=== PATIENT | male | born 1970 | race Caucasian/White ===

== ENCOUNTER → 2017-10-17 17:22 | Outpatient (CLI) | payer BC, SELFPAY ==
--- NOTE | 2017-10-17 18:01 | XR_ITS ---
XR wrist RT min 3V HISTORY: Wrist pain ORDERING PHYSICIAN: Alejandro Daily MD PATIENT AGE: 47 years COMPARISON: None FINDINGS: There is an old ununited fracture involving the junction of the mid and distal third of the scaphoid. There is sclerosis of the fracture line. The distal and proximal fracture fragments however do not appear significantly sclerotic. The findings are not convincing for avascular necrosis. No acute fracture or dislocation evident. 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
--- NOTE | 2017-10-17 18:02 | XR_ITS ---
XR forearm RT 2V HISTORY: Right forearm pain ORDERING PHYSICIAN: Alejandro Daily MD PATIENT AGE: 47 years COMPARISON: None FINDINGS: No obvious fracture, dislocation, lytic change or blastic change. Normal mineralization. Unremarkable soft tissues IMPRESSION: Negative forearm
== END ==
PROVIDERS: PCP Internal Medicine Adolescent Medicine; Visit Provider Internal Medicine Adolescent Medicine
DX: R00.1 Bradycardia, unspecified (principal); M79.601 Pain in right arm; M25.531 Pain in right wrist
CPT/HCPCS: 73090; 73110; 93225; 93226

== ENCOUNTER → 2017-11-28 08:30 | Outpatient (CLI) | payer BC, SELFPAY ==
--- NOTE | 2017-11-28 08:32 | CA_ITS ---
PROCEDURE: 2-D M-mode and color Doppler study INDICATIONS FOR THE TEST: Chest pain COPD Heart Murmur Tobacco Smoking Palpitations Fatigue+ Syncope Edema Hypertension Diabetes Mellitus Rheumatic Fever SOB ROJAS Obesity Hyperlipidemia Family History HD+ Additional History BRADYCARDIA PATIENT INFORMATION HEIGHT: 75 WEIGHT:216 GENDER: Male B/P:126/77 2-D/M-MODE INTERPRETATION: 2-D MEASUREMENTS OBSERVED VALUES IN CMS Right Ventricular Dimension (RVDd) 2.2 Interventricular Septum (Thickness)(IVsd) 1.3 Left Ventricular Internal Dimensions(LVIDd) 5.0 Left Ventricular Posterior Wall (Thickness)(LVPWd) 1.2 Aortic Root 3.0 Aortic Cusp Separation 2.0 Left Atrial Dimensions (LAD) 3.4 2D 1. Left atrium is normal size, left ventricle is normal size, left ventricle wall thickness is upper limit of the normal, preserved left ventricular systolic function, visually estimated ejection fraction 55% with no obvious regional wall motion abnormality. 2. The right atrium and right ventricle are normal size and contractility. 3. The aortic, mitral and tricuspid valve are structurally normal. 4. The pulmonic valve is poorly visualized. 5. There is trivial pericardial effusion noted. DOPPLER INTERROGATION: Doppler interrogation of the aortic, mitral and tricuspid valvular presence of mild mitral and tricuspid regurgitation, tricuspid and enteric velocity insufficient for calculation of the right ventricular systolic pressure, diastolic parameters are inconclusive. CONCLUSION: 1. Normal left ventricular size, preserved left ventricular systolic function, visually estimated ejection fraction 55% with no obvious regional wall motion abnormality, diastolic parameters are inconclusive. 2. Mild mitral and tricuspid addition 3. Trivial pericardial effusion noted.
--- NOTE | 2017-11-28 08:32 | CT_ITS ---
CT heart w calcium score ITS.REASON: early family hx of ischemic heart disease ORDERING PHYSICIAN HISTORY 47-year-old male. Nonsmoker. Early family history of ischemic heart disease. Bradycardia. COMPARISON: None Technique: All CT scans at this facility use one or more dose reduction techniques, viz.: automated exposure control; ma/kV adjustment per patient size (including targeted exams where dose is matched to indication; i.e. head) or iterative reconstruction technique. FINDINGS: Coronary calcium score is 0. No identifiable calcified atherosclerotic plaque Very low cardiovascular disease risk. Limited images the chest for this study show the heart to be normal size no pericardial effusion minimal wispy density anterior mediastinum nonspecific. A may reflect some residual thymus tissue. No ebony or mass like appearance. IMPRESSION: 1.Coronary calcium score is 0. No identifiable calcified atherosclerotic plaque Very low cardiovascular disease risk.
== END ==
PROVIDERS: Family Provider Internal Medicine Adolescent Medicine; PCP Internal Medicine Adolescent Medicine; Visit Provider Internal Medicine
DX: I97.89 Other postprocedural complications and disorders of the circulatory system, not elsewhere classified (principal); Z82.49 Family history of ischemic heart disease and other diseases of the circulatory system; R53.83 Other fatigue
CPT/HCPCS: 75571; 93306

== ENCOUNTER → 2018-03-28 16:01 | Outpatient (POV) | payer BC, SELFPAY ==
[2018-03-28 17:45] LABS: Basophils % 0.4 % (0.1-2.0); Eosinophils # 0.1 K/mm3 (0.0-0.4); Eosinophils % 1.7 % (0.1-12.0); Hematocrit 41.1 % (42.0-52.0); Hemoglobin 13.5 g/dL (14.1-18.0); Lymphocytes # 2.2 K/mm3 (0.7-4.5); Lymphocytes % 30.1 K/mm3 (10-50); Mean Corpuscular HGB Conc 32.9 g/dL (31.8-35.4); Mean Corpuscular Hemoglobin 28.9 pg (27.0-31.2); Mean Platelet Volume 7.3 fl (7.4-10.4); Monocytes # 0.4 K/mm3 (0.1-1.0); Monocytes % 6.2 % (1.7-9.3); Neutrophils # 4.4 K/mm3 (1.8-7.8); Neutrophils % 61.7 % (37.0-80.0); Platelet Count 275 K/mm3 (142-424); Red Blood Count 4.67 M/mm3 (4.60-6.20); Red Cell Distribution Width 14.3 % (11.5-17.5); White Blood Count 7.2 K/mm3 (4.8-10.8)
[2018-03-28 19:33] LABS: Alanine Aminotransferase 40 U/L (12-78); Albumin/Globulin Ratio 1.3 (1.1-1.8); Alkaline Phosphatase 101 U/L (46-116); Anion Gap 13.2 mEq/L (5-15); Aspartate Amino Transferase 16 U/L (15-37); Bilirubin,Total 0.4 mg/dL (0.2-1.0); Blood Urea Nitrogen 21 mg/dL (7-18); Carbon Dioxide 23 mmol/L (21.0-32.0); Chloride 107 mmol/L (98-107); Cholesterol 193 mg/dL (140-200); Creatinine,Serum 0.87 mg/dL (0.70-1.30); Estimated Glomerular Filt Rate 94 ml/min (>60); GFR (African American) 114 ML/MIN (>60); Globulin 3.1 gm/dl (1.3-3.2); Glucose 79 mg/dL (74-106); HDL Cholesterol 64 mg/dL (27-67); LDL Cholesterol 110 mg/dL (0-130); Potassium 4.2 mmoL/L (3.5-5.1); Sodium 139 mmol/L (136-145); Total Protein,Serum 7.1 gm/dL (6.4-8.2); Triglycerides 94 mg/dL (30-200); VLDL Cholesterol 19 mg/dL (0-40)
== END ==
PROVIDERS: Family Provider Internal Medicine Adolescent Medicine; PCP Internal Medicine Adolescent Medicine; Visit Provider Dermatology
DX: L70.0 Acne vulgaris (principal); Z79.899 Other long term (current) drug therapy
CPT/HCPCS: 36415; 80053; 80061; 85025

== ENCOUNTER → 2018-06-04 15:57 | Outpatient (POV) | payer BC, SELFPAY | PROVIDERS: Family Provider Internal Medicine Adolescent Medicine; PCP Internal Medicine Adolescent Medicine; Visit Provider Dermatology | DX: Z00.00 Encounter for general adult medical examination without abnormal findings (principal) ==

== ENCOUNTER → 2018-08-13 16:08 | Outpatient (POV) | payer BC, SELFPAY | PROVIDERS: Visit Provider Dermatology | DX: Z00.00 Encounter for general adult medical examination without abnormal findings (principal) ==

== ENCOUNTER → 2018-12-24 15:55 | Outpatient (POV) | payer BC, SELFPAY | PROVIDERS: Visit Provider Dermatology | DX: Z00.00 Encounter for general adult medical examination without abnormal findings (principal) ==

== ENCOUNTER → 2019-08-30 09:39 | Outpatient (CLI) | payer BC, SELFPAY ==
[2019-08-30 09:55] LABS: Basophils % 0.5 % (0.1-2.0); Eosinophils # 0.2 K/mm3 (0.0-0.4); Eosinophils % 2.9 % (0.1-12.0); Hematocrit 46.9 % (42.0-52.0); Hemoglobin 15.2 g/dL (14.1-18.0); Lymphocytes # 1.7 K/mm3 (0.7-4.5); Lymphocytes % 28.3 % (10-50); Mean Corpuscular HGB Conc 32.4 g/dL (31.8-35.4); Mean Corpuscular Volume 89.4 fl (80-94); Mean Platelet Volume 7.5 fl (7.4-10.4); Monocytes # 0.4 K/mm3 (0.1-1.0); Monocytes % 5.7 % (1.7-9.3); Neutrophils # 3.8 K/mm3 (1.8-7.8); Neutrophils % 62.5 % (37.0-80.0); Platelet Count 274 K/mm3 (142-424); Red Blood Count 5.25 M/mm3 (4.60-6.20); Red Cell Distribution Width 13.8 % (11.5-17.5); White Blood Count 6.1 K/mm3 (4.8-10.8)
[2019-08-30 10:23] LABS: Hemoglobin A1C 5.9 % (0.0-7.0)
[2019-08-30 10:59] LABS: Alanine Aminotransferase 60 U/L (12-78); Albumin/Globulin Ratio 1.3 (1.1-1.8); Alkaline Phosphatase 144 U/L (46-116); Anion Gap 17.3 mEq/L (5-15); Aspartate Amino Transferase 22 U/L (15-37); Bilirubin,Total 0.4 mg/dL (0.2-1.0); Blood Urea Nitrogen 17 mg/dL (7-18); Carbon Dioxide 23 mmol/L (21.0-32.0); Chloride 105 mmol/L (98-107); Chol/HDL Ratio 4.3 (1-3.5); Cholesterol 274 mg/dL (140-200); Creatinine,Serum 0.91 mg/dL (0.70-1.30); Estimated Glomerular Filt Rate 89 ml/min (>60); GFR (African American) 107 ML/MIN (>60); Globulin 3.2 gm/dl (1.3-3.2); Glucose 97 mg/dL (74-106); HDL Cholesterol 64 mg/dL (27-67); LDL Cholesterol 189 mg/dL (0-130); Potassium 4.3 mmoL/L (3.5-5.1); Sodium 141 mmol/L (136-145); Thyroid Stimulating Hormone 1.61 uIU/ml (0.358-3.740); Total Protein,Serum 7.2 gm/dL (6.4-8.2); Triglycerides 104 mg/dL (30-200); VLDL Cholesterol 21 mg/dL (0-40)
[2019-08-31 09:45] LABS: Vitamin B12 193 pg/mL (232-1245)
[2019-09-01 13:42] LABS: Vitamin D 25 Hydroxy 16.7 ng/mL (30.0-100.0)
[2019-09-05 06:39] LABS: Antiparietal Cell Antibody 42.6
== END ==
PROVIDERS: Visit Provider Internal Medicine Adolescent Medicine
DX: M79.2 Neuralgia and neuritis, unspecified (principal); E53.8 Deficiency of other specified B group vitamins; E55.9 Vitamin D deficiency, unspecified
CPT/HCPCS: 36415; 80053; 80061; 82607; 82652; 83036; 83516; 84443; 85025

== ENCOUNTER → 2019-09-19 16:22 | Outpatient (CLI) | payer BC, SELFPAY ==
--- NOTE | 2019-09-19 16:33 | CT_ITS ---
PROCEDURE: CT ABDOMEN PELVIS WO CON CLINICAL INDICATION: FLANK PAIN COMPARISON: ABDPELW/O CT ABD PELVIS W/O CONTRAST from 07/27/2016 TECHNIQUE: Axial images obtained with sagittal and coronal reformats. All CT scans at the facility use one or more dose reduction, viz: automated exposure control, ma/kV adjustment per patient size (including targeted exams where dose is matched to indication, i.e. head), or iterative reconstruction technique. FINDINGS: LOWER THORAX: No acute finding ABDOMEN & PELVIS: There is an approximately 3 millimeter nonobstructing stone at the cortico medullary junction of the right lower pole kidney. A 1 millimeter nonobstructing stone in the lower pole of the left kidney is noted. There is no ureteral stone. The liver, spleen, pancreas, adrenal glands, and kidneys show no acute finding. No intestinal obstruction or free air. No evidence of appendicitis or diverticulitis. No pelvic mass, abnormal fluid collection, or focal inflammatory change of the pelvis. Postsurgical changes with metallic reduction rods and bi pedicular screws are noted at L5-S1. There is grade 1 anterior listhesis L5 on S1 with bilateral pars defects. Bilateral laminectomy defects are noted. No acute bony anomalies. Incidental note is made of scrotal hydroceles right greater than left. Scrotum is incompletely imaged. Ultrasound could further evaluate if felt to be clinically indicated. IMPRESSION: Bilateral nonobstructing renal calculi. Dictated by: Derrick Mejia 09/20/2019 10:35 Electronically signed by Derrick Mejia in [facility] 09/20/2019 10:35
== END ==
PROVIDERS: PCP Internal Medicine Adolescent Medicine; Visit Provider Internal Medicine Adolescent Medicine
DX: R10.9 Unspecified abdominal pain (principal)
CPT/HCPCS: 74176

== ENCOUNTER → 2019-11-10 15:42 | Outpatient (CLI) | payer BC, SELFPAY ==
--- NOTE | 2019-11-10 15:46 | XR_ITS ---
PROCEDURE: XR SHOULDER RT MIN 2V CLINICAL INDICATION: RT ROTATOR CUFF DISORDER Shoulder pain COMPARISON: No exams were available for comparison FINDINGS: The glenohumeral joint has an unremarkable appearance. Acromioclavicular joint also has an unremarkable appearance. There is an old ununited fracture of the distal shaft of the clavicle with inferior displacement of the distal fracture fragment by approximately 13 mm. There is some ossification of the coracoclavicular ligament. IMPRESSION: 1. Ununited displaced right distal clavicular fracture. 2. Unremarkable acromioclavicular and glenohumeral joint Dictated by: Jimmy Jung MD 11/10/2019 15:59 Electronically signed by Jimmy Jung MD in [facility] 11/10/2019 15:59
== END ==
PROVIDERS: PCP Internal Medicine Adolescent Medicine; Visit Provider Internal Medicine Adolescent Medicine
DX: M67.911 Unspecified disorder of synovium and tendon, right shoulder (principal)
CPT/HCPCS: 73030

== ENCOUNTER 2019-11-18 17:30 | Outpatient (RCR) | payer BC, SELFPAY ==
--- NOTE | 2019-11-12 17:38 | HMH.PTOPEV ---
PT Outpatient Evaluation Rehab PT Outpatient Evaluation Start: 11/12/19 16:47 Freq: Status: Active Protocol: Document 11/12/19 16:47 RENOSCOTTY (Rec: 11/12/19 17:38 FELY [id number]) Electronically Signed By Domo Chapa PT 11/12/19 16:47 Outpatient Therapy Subjective History Subjective History This is the initial Physical Therapy evaluation for Dwayne Mcgrath. Pt is a 49 y/o male referred to PT for c/o R shoulder pain. Pt reports pain began insidiously ~ 1 month ago. Pt notes pain in anterir portion of R shoulder into the joint and superior portion. 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 Chief Complaint Pain Symptom Type Ache,Burning Symptoms Relieved By Rest/Positioning Symptoms Aggravated By Physical Activity Prior Functional Limitations None Current Functional Limitations Reaching,Lifting,Sleeping, Recreation Activity Level of pain today (0-10) 3 Pain scale - at its best (0-10) 2 Pain scale - at its worst (0-10) 9 Shoulder/Elbow Eval Shoulder Objective Measurements Palpation Tenderness tenderness shoulder exam standard right tenderness over the bicipital tendon right shoulder exam standard Shoulder Palpation Findings Tenderness Shoulder ROM Right Shoulder ROM Limitations Pain Shoulder Abduction Active Range of 90 Motion (degrees) Shoulder Flexion Active Range of Motion 90 (degrees) Query Text: pain with active ROM shoulder exam right standard pain with passive ROM shoulder exam right standard decreased ROM shoulder exam standard right Shoulder Special Tests Shoulder Drop Arm Test Negative Right Shoulder Cross-Over Impingement Test Negative Right Shoulder Anterior Drawer Test Negative Right Shoulder Clunk Test Negative Right Shoulder Empty Can (Supraspinatus) Test Negative Right Shoulder Grind Test Negative Right Shoulder Neer Impingement Test Positive Right Shoulder Piano Rdz Sign Positive Right Shoulder Rotatory Stress Test Negative Left Elbow Objective Measurements Outpatient Therapy Assessment Impairments Problems/Impairmments Palpation Tenderness,Impaired Range of Motion,Impaired Strength,Impaired Lifting, Impaired Dressing,Impaired
== END 2019-11-18 17:35 | disposition home or self-care (01) ==
LOC: PT 17:30
PROVIDERS: PCP Internal Medicine Adolescent Medicine; Visit Provider Internal Medicine Adolescent Medicine
DX: M67.911 Unspecified disorder of synovium and tendon, right shoulder (principal)
CPT/HCPCS: 97010; 97014; 97033; 97110; 97163; G0283

== ENCOUNTER 2019-12-15 17:00 | Emergency (ER) | payer BC, SELFPAY ==
[2019-12-15 17:09] VITALS: BP 130/93; PULSE 64; RESP 16; TEMP 36.8; O2SAT 98; BMI 28.2
--- NOTE | 2019-12-15 17:15 | XR_ITS ---
PROCEDURE: XR HAND LT MIN 3V CLINICAL INDICATION: INJURY Posttraumatic pain COMPARISON: No exams were available for comparison FINDINGS: No fracture or dislocation. No lytic or blastic change. There is normal mineralization. There is a small metallic density in the thenar eminence at 3 mm and 1 along the lateral and proximal aspect of the proximal phalanx of the 1st finger at 2 mm. Other findings:None. IMPRESSION: 1. No acute fracture. 2. Metallic foreign bodies at the thumb and thenar eminence Dictated by: Jimmy Jung MD 12/15/2019 20:04 Electronically signed by Jimmy Jung MD in [facility] 12/15/2019 20:04
[2019-12-15 17:16] VITALS: BP 130/93; PULSE 64; RESP 16; TEMP 36.8; O2SAT 98; BMI 28.2
--- NOTE | 2019-12-15 18:03 | HMH.EDUTC ---
[facility] [place] Disposition Clinical Impression: Need for Tdap vaccination Injury, crush, finger Qualifiers: Encounter type: initial encounter Qualified Code(s): S67.10XA - Crushing injury of unspecified finger(s), initial encounter Disposition: Home, Self-Care Condition on Discharge: Good Instructions: DI for Crush Injury Additional Instructions: Rest the extremity, Elevate the extremity as tolerated while you are resting. Take ibuprofen for pain. I sent in a prescription to your pharmacy. Follow up with Dr. Hoang. I put in a referral but you need to call his office and schedule an appointment. Follow up with your regular doctor. GO TO THE ER FOR ANY WORSENING SYMPTOMS Prescriptions: Mupirocin [Bactroban 2% Ointment 22gm tube] 1 applicatio TP TID 7 Days #1 tube Transmission Status: Received by [email or web address] cephALEXin [Keflex 500mg Cap] 500 mg PO Q6H 10 Days #40 cap Transmission Status: Received by [email or web address] Referrals: Alejandro Daily MD [Primary Care Provider] - Germain Hoang MD [Staff Physician] - Time of Disposition: 18:05 Medical Decision Making - Medical Records Medical records reviewed: No: I reviewed the patient's medical records. - Manav Inquiry Pt receiving controlled substance: No Vital Signs: 12/15/19 17:09 12/15/19 17:16 12/15/19 18:32 Temperature 98.3 F 98.3 F 98.3 F Temperature Source Oral Oral Oral Pulse Rate 64 Pulse Rate [Left Radial] 64 64 Respiratory Rate 16 16 16 Blood Pressure 130/93 H Blood Pressure [Right Arm] 130/93 H 130/93 H Blood Pressure Mean [Right Arm] 105 105 Blood Pressure Source Automatic Cuff Blood Pressure Source [Right Arm] Automatic Cuff Blood Pressure Position Sitting Blood Pressure Position [Right Arm] Sitting Sitting 02 Sat by Pulse Oximetry 98 98 Oxygen Delivery Method Room Air Room Air Room Air Orders (Tests/Meds): ED MEDICATIONS Discontinued Medications Generic Name Dose Route Start Last Admin Trade Name Freq PRN Reason Stop Dose Admin Tetanus/Reduced Diphtheria/Acell Pertussis 0.5 ml 12/15/19 17:21 12/15/19 17:38 Adacel Tdap 0.5ml Syringe IM 12/15/19 17:22 0.5 ml .ONCE ONE Administration - Radiology Data #1 Image(s): Hand Image Reviewed: Yes I reviewed the patient's radiology image, Yes I have reviewed radiologist's interpretation Preliminary Findings: No Fracture Seen FINDINGS: No fracture or dislocation. No lytic or blastic change. There is normal mineralization. There is a small metallic density in the thenar eminence at 3 mm and 1 along the lateral and proximal aspect of the proximal phalanx of the 1st finger at 2 mm. Other findings:None. IMPRESSION: 1. No acute fracture. 2. Metallic foreign bodies at the thumb and thenar eminence [facility] [place] HPI - General Stated complaint: AO smashed L pinky in log splitter 12/14/19 Time Seen by Provider: 12/15/19 17:10 Mode of Arrival: Family Vehicle Source of Information: Patient Limitations: No Limitations Description of Symptoms (Recalled from Triage Doc. by RN): to ed per pvt car pt states he smashed his lt 5th finger with a log splitter yesterday afternoon. HEENT Symptoms (Recalled from RN notes): No Resp Symptoms (Recalled from RN notes): No Skin Symptoms (Recalled from RN notes): Yes MS Symptoms (Recalled from RN notes): No Functional Status (Recalled from RN notes): N/A - History of Present Illness Provider Complaint: He states that yesterday he was splitting wood with an automatic log splitter when he accidentily got the tip of his right smallest finger caught under a log. It mashed his finger but it did not mash the nail. There is a small laceration also. - Related Data Previous Rx's Medication Instructions Recorded Mupirocin [Bactroban 2% Ointment 1 applicatio TP TID 7 Days #1 tube 12/15/19 22gm tube] cephALEXin [Keflex 500mg Cap] 500 mg PO Q6H 10 Days #40 cap 12/15/19 Allergies
[2019-12-15 18:32] VITALS: BP 130/93; PULSE 64; RESP 16; TEMP 36.8; O2SAT 98
== END 2019-12-15 18:34 | disposition home or self-care (01) ==
PROVIDERS: Emergency Provider Nurse Practitioner Family; PCP Internal Medicine Adolescent Medicine
DX: S67.197A Crushing injury of left little finger, initial encounter (principal); W31.89XA Contact with other specified machinery, initial encounter; Y92.89 Other specified places as the place of occurrence of the external cause; Z23 Encounter for immunization
CPT/HCPCS: 73130; 90471; 90715; 99201

== ENCOUNTER → 2020-03-31 10:02 | Outpatient (CLI) | payer BC, SELFPAY ==
--- NOTE | 2020-03-31 10:09 | XR_ITS ---
PROCEDURE: XR CHEST 2V CLINICAL HISTORY: Left-sided chest wall pain COMPARISON: CR CXR2V XR chest 2V from 09/06/2018 FINDINGS: The cardiomediastinal silhouette and pulmonary vascularity are within normal limits. There is mild biapical pleural thickening. Bone plate is present along the lower cervical spine. Lungs are clear of acute infiltrate. There is an old ununited distal clavicular fracture on the right with superior displacement of the proximal fracture fragment and no bony apposition. IMPRESSION: No acute finding. Old right clavicular fracture Dictated b Jimmy Jung MD 03/31/2020 14:00 Jimmy Jung MD in [facility] 03/31/2020 14:00
--- NOTE | 2020-03-31 10:09 | XR_ITS ---
PROCEDURE: XR RIBS LT 2V CLINICAL INDICATION: L SIDED CHEST WALL PAIN COMPARISON: No exams were available for comparison FINDINGS: Three views the left ribs show no obvious fracture, dislocation, lytic change, or blastic change. IMPRESSION: Negative left ribs Dictated b Jimmy Jung MD 03/31/2020 13:59 Jimmy Jung MD in [facility] 03/31/2020 13:59
== END ==
PROVIDERS: PCP Internal Medicine Adolescent Medicine; Visit Provider Internal Medicine Adolescent Medicine
DX: R07.89 Other chest pain (principal)
CPT/HCPCS: 71046; 71100

== ENCOUNTER → 2020-04-14 08:46 | Outpatient (CLI) | payer BC, SELFPAY ==
--- NOTE | 2020-04-14 08:50 | US_ITS ---
PROCEDURE: US ABDOMEN COMPLETE CLINICAL INDICATION: LUQ PAIN COMPARISON: CT CT ABDOMEN PELVIS WO CON from 09/19/2019 FINDINGS: PANCREAS: The pancreas appears somewhat hyperechoic. This is of questionable clinical significance. No obvious pancreatic mass LIVER: No focal liver lesions demonstrated. Homogeneous echogenicity. No intrahepatic biliary ductal dilatation evident. There is appropriate direction of blood flow within a non dilated portal vein RIGHT KIDNEY: Unremarkable. Normal size and echogenicity. No hydronephrosis LEFT KIDNEY: Unremarkable. Normal size and echogenicity. No hydronephrosis GALLBLADDER: No gallstones, gallbladder wall thickening, pericholecystic fluid, or biliary dilatation. AORTA: No evidence of aneurysmal dilatation. SPLEEN: Unremarkable. Normal size and echogenicity ASCITES: None demonstrated. IMPRESSION: The pancreas is hyperechoic. This is of questionable clinical significance and may be a variation of normal. Otherwise negative abdominal ultrasound. Dictated by: Jimmy Jung MD 04/14/2020 17:15 Jimmy Jung MD in [facility] 04/14/2020 17:15
== END ==
PROVIDERS: PCP Internal Medicine Adolescent Medicine; Visit Provider Internal Medicine Adolescent Medicine
DX: R10.12 Left upper quadrant pain (principal)
CPT/HCPCS: 76700

== ENCOUNTER → 2020-04-23 09:29 | Outpatient (CLI) | payer BC, SELFPAY ==
--- NOTE | 2020-04-23 09:53 | CT_ITS ---
PROCEDURE: CT ABDOMEN PELVIS WO/W CON CLINICAL INDICATION: LT UPPER QUAD PAIN,LT SIDED CHEST PAIN LUPPER QUAD PAIN LEFT SIDE PAIN X SEVERAL MONTHS COMPARISON: CT CT ABDOMEN PELVIS WO CON from 09/19/2019 TECHNIQUE: IV Contrast: 75ML OPTIRAY 350 Oral Contrast 450ml Redicat Axial images obtained with sagittal and coronal reformats. All CT scans at the facility use one or more dose reduction, viz: automated exposure control, ma/kV adjustment per patient size (including targeted exams where dose is matched to indication, i.e. head), or iterative reconstruction technique. FINDINGS: LOWER THORAX: No acute finding ABDOMEN & PELVIS: The liver, gallbladder, spleen, adrenal glands, and pancreas have an unremarkable appearance. There is a duodenal diverticulum noted. Unenhanced images show 2 small stones in the lower pole of the right kidney at 1-2 mm. The left kidney has an unremarkable appearance. No ureteral calculi or hydronephrosis evident. No renal mass or perinephric collection. There are few scattered small mesenteric lymph nodes present which are nonspecific. Unremarkable appendix. No intestinal obstruction or free air. No pelvic mass or abnormal fluid collection. Postsurgical changes are present at the lumbosacral junction with inter pedicular screws. 9 mm anterolisthesis of L5 on S1. No acute bony findings. There is a small umbilical hernia containing fat. IMPRESSION: No acute abdominal or pelvic findings. Nonobstructing right nephrolithiasis. Dictated by: Jimmy Jung MD 04/24/2020 13:25 Jimmy Jung MD in [facility] 04/24/2020 13:25
== END ==
PROVIDERS: PCP Internal Medicine Adolescent Medicine; Visit Provider Internal Medicine Adolescent Medicine
DX: R07.9 Chest pain, unspecified (principal); R10.12 Left upper quadrant pain
CPT/HCPCS: 74178; Q9967

== ENCOUNTER 2020-04-26 13:03 | Emergency (ER) | payer BC, SELFPAY ==
[2020-04-26 13:25] VITALS: BP 151/82; PULSE 74; RESP 19; TEMP 36.6; O2SAT 98; BMI 30.8
--- NOTE | 2020-04-26 13:42 | HMH.EDUTC ---
[facility] [place] Clinical Impression: Allergic rhinitis Qualifiers: Allergic rhinitis trigger: unspecified Allergic rhinitis seasonality: unspecified Qualified Code(s): J30.9 - Allergic rhinitis, unspecified Disposition: Home, Self-Care Condition on Discharge: Good Instructions: Allergic Rhinitis, DI for Allergic Rhinitis Additional Instructions: *Monitor Temp, Over the counter Motrin or Tylenol as directed/as needed Tylenol every 4 hours and Motrin every 6 hours (as long as your family doctor has told you that you can take it) for fever or pain. and straight to ER if unable to lower temp less than 101.0 after medication given Make sure that you are drinking plenty of water to help keep secretions thin *Sleep elevated *Humidifier/Vaporizer *Nasonex 2 sprays in each nostril daily but be aware that it may take 2-3 days before you notice improvement Start oral steroids tomorrow you was given injection in the clinic today Follow up IMMEDIATELY for new or worsening symptoms or no Noticeable improvement over the next 48-72 hours. 911 for difficulty breathing or swallowing Prescriptions: methylPREDNISolone [Medrol 4mg tab] 4 mg PO DIRECTED #21 tab Transmission Status: Received by [facility] Mometasone Furoate [Nasonex] 2 sprays NS DAILY #1 spray.pump Transmission Status: Received by [facility] Referrals: Alejandro Daily MD [Primary Care Provider] - As needed Time of Disposition: 13:52 Medical Decision Making - Manav Inquiry Pt receiving controlled substance: No Manav was queried for this patient: No Vital Signs: 04/26/20 13:25 04/26/20 13:57 Temperature 97.8 F 97.8 F Temperature Source Oral Pulse Rate 74 Pulse Rate [Right Brachial] 74 Respiratory Rate 19 19 Blood Pressure 151/82 H Blood Pressure [Right Arm] 151/82 H Blood Pressure Mean [Right Arm] 105 Blood Pressure Source [Right Arm] Automatic Cuff Blood Pressure Position [Right Arm] Sitting 02 Sat by Pulse Oximetry 98 Oxygen Delivery Method Room Air Orders (Tests/Meds): ED MEDICATIONS Discontinued Medications Generic Name Dose Route Start Last Admin Trade Name Freq PRN Reason Stop Dose Admin Methylprednisolone Sodium Succinate 125 mg 04/26/20 13:45 04/26/20 13:49 Solu-Medrol 125mg/2ml Vial IM 04/26/20 13:46 125 mg ONCE ONE Administration [facility] [place] - General Stated complaint: allergies Time Seen by Provider: 04/26/20 13:45 Mode of Arrival: Ambulatory Source of Information: Patient Limitations: No Limitations Description of Symptoms (Recalled from Triage Doc. by RN): PATIENT C/O ALLERGIES HEENT Symptoms (Recalled from RN notes): Yes Resp Symptoms (Recalled from RN notes): No Skin Symptoms (Recalled from RN notes): No MS Symptoms (Recalled from RN notes): No Functional Status (Recalled from RN notes): WNL - History of Present Illness Provider Complaint: Patient states that he has been havingn problems with his allergies and has taken several over the counter medications that has not helped State that he sometimes has to come in for a shot to help to clear up his allergies States that he has been having itchy watery eyes, sneezing and nasal congestion and nothing he has taken has helped - Related Data Previous Rx's Medication Instructions Recorded Mometasone Furoate [Nasonex] 2 sprays NS DAILY #1 spray.pump 04/26/20 methylPREDNISolone [Medrol 4mg 4 mg PO DIRECTED #21 tab 04/26/20 tab] Allergies Allergy/AdvReac Type Severity Reaction Status Date / Time No Known Allergies Allergy Verified 12/02/19 14:27 - Worker's Comp Is this a Worker's Comp case?: No [facility] History - Hepatitis A Screen Drug use history?: No High risk sexual behaviors?: No History of sexually transmitted infection?: No Currently employed?: No Childcare worker?: No Do you have indoor plumbing?: Yes Do you have electricity?: Yes Attestation statement:: This patient has been screened for Hepat
[2020-04-26 13:57] VITALS: BP 151/82; PULSE 74; RESP 19; TEMP 36.6; O2SAT 98
== END 2020-04-26 14:02 | disposition home or self-care (01) ==
PROVIDERS: Emergency Provider Nurse Practitioner; PCP Internal Medicine Adolescent Medicine
DX: J30.9 Allergic rhinitis, unspecified (principal); Z87.442 Personal history of urinary calculi
CPT/HCPCS: 96372; 99201

== ENCOUNTER → 2020-09-23 16:52 | Outpatient (CLI) | payer BC, SELFPAY ==
--- NOTE | 2020-09-23 16:58 | XR_ITS ---
PROCEDURE: XR SHOULDER LT MIN 2V CLINICAL INDICATION: ACUTE PAIN OF LT SHOULDER COMPARISON: CR XR SHOULDER RT MIN 2V from 11/10/2019 FINDINGS: No fracture or dislocation. No lytic or blastic change. There is normal mineralization. Minimal osteoarthritic change left glenohumeral joint Other findings:There is some minimal cortical irregularity involving the greater tuberosity of the humerus. This is nonspecific but could be seen with rotator cuff disease. IMPRESSION: Minimal osteoarthritic change left glenohumeral joint Mild cortical irregularity greater tuberosity which could be seen with rotator cuff disease Dictated by: Jimmy Jung MD 09/23/2020 18:04 Jimmy Jung MD in [facility] 09/23/2020 18:04
== END ==
LOC: RAD 16:54
PROVIDERS: PCP Internal Medicine Adolescent Medicine; Visit Provider Internal Medicine Adolescent Medicine
DX: M25.512 Pain in left shoulder (principal)
CPT/HCPCS: 73030

== ENCOUNTER → 2020-10-25 12:47 | Outpatient (CLI) | payer BC, SELFPAY ==
--- NOTE | 2020-10-25 12:48 | MR_ITS ---
PROCEDURE: MR SHOULDER LT WO CON CLINICAL INDICATION: left shoulder pain; evaluate for a rotator cuff Shoulder pain [id number]. No injury. Limited ROM. Pain when raising arm above head. Prior x-ray 09-23-20. COMPARISON: CR XR SHOULDER LT MIN 2V from 09/23/2020 TECHNIQUE: Routine multiplanar multi echo sequences are performed without gadolinium enhancement. FINDINGS: There is a small amount fluid in the subacromial and subdeltoid region. There is slight increased T2 signal the infraspinatus and supraspinatus tendons suggesting tendinopathy/tendinosis. A small partial tear is present involving the insertion of the supraspinatus tendon distally and posteriorly at the greater tuberosity as evident on image 9 series 4 involving the lateral aspect of the tendon at this region. A full-thickness tear or complete tear is not identified. There is mild acromioclavicular arthropathy with some impingement upon the musculotendinous junction of the supraspinatus evident on image 13 series 4. No significant subacromial stenosis distally. There does appear to be a nondisplaced tear involving the posterior glenoid labrum. Bicipital tendon is in place. IMPRESSION: 1. Partial tear involves the supraspinatus tendon laterally at its insertion upon the greater tuberosity of the humerus with tendinopathy/tendinosis noted of the supraspinatus and infraspinatus tendons. 2. Acromioclavicular hypertrophy with mild impingement upon the musculotendinous junction of the supraspinatus. There is a small amount fluid in the subdeltoid and subacromial region. 3. Suspect nondisplaced tear posterior glenoid labrum Dictated by: Jimmy Jung MD 10/27/2020 10:11 Jimmy Jung MD in [facility] 10/27/2020 10:11
== END ==
LOC: RAD 12:48
PROVIDERS: PCP Internal Medicine Adolescent Medicine; Visit Provider Orthopaedic Surgery
DX: M25.512 Pain in left shoulder (principal); G89.29 Other chronic pain
CPT/HCPCS: 73221

== ENCOUNTER 2020-12-10 08:00 | Outpatient (RCR) | payer BC, SELFPAY ==
--- NOTE | 2020-11-10 09:17 | HMH.PTOPEV ---
PT Outpatient Evaluation Rehab PT Outpatient Evaluation Start: 11/10/20 08:23 Freq: Status: Active Protocol: Document 11/10/20 08:25 BUTCH (Rec: 11/10/20 09:17 BUTCH [id number]) Electronically Signed By Elan Choudhary, PT 11/10/20 08:25 Outpatient Therapy Subjective History Subjective History Pt presents w/L SH RTC partial tear of supra-, tendinitis/- opathy of supra- and infraspinatus, AC joint hypertrophy. Pt reports insidious onset L SH pain around Xmas '20. Pt reports mostly anterior area L SH pain , day. 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 Chief Complaint Pain,Stiff Symptom Type Ache,Sharp,Dull Symptoms Relieved By Rest/Positioning,Heat,Ice Symptoms Aggravated By Physical Activity,Lifting Prior Functional Limitations Reaching,Lifting,Housework Current Functional Limitations Reaching,Lifting,Housework Symptom Description Constant but Variable Level of pain today (0-10) 3 Pain scale - at its best (0-10) 2 Pain scale - at its worst (0-10) 8 Shoulder/Elbow Eval Shoulder Objective Measurements Palpation Tenderness tenderness shoulder exam standard left tenderness over the bicipital tendon left shoulder exam standard Shoulder Palpation Findings Tenderness Shoulder Palpation Overall Comment 2-3/4 SS INSERTION Posture Shoulder Posture Sitting Position Neutral Scapula Posture Sitting Position (L) Protracted,(R) Protracted Scapular Posture Standing Position (L) Protracted,(R) Protracted Shoulder ROM Left Shoulder Abduction Active Range of 0-85 Motion (degrees) Shoulder Flexion Active Range of Motion 0-135 (degrees) Query Text: Shoulder External Rotation Passive Range 0-90 of Motion (degrees) Shoulder Internal Rotation Passive Range 0-80 of Motion (degrees) Shoulder MMT Lower Trapezius Strength Grade 3+ Fair+ Middle Trapezius Strength Grade 4- Good- Rhomboids Strength Grade 4- Good- Serratus Anterior Strength Grade 4- Good- Shoulder Abduction Strength Grade 3+ Fair+ Shoulder Flexion Strength Grade 4- Good- Shoulder External Rotation Strength 4- Good- Grade Shoulder Internal Rotation Strength 5 Normal Grade Subscapularis Muscle Grade 3+ Fair+ Shoulder Special Tests Shoulder Empty Can (Supraspinatus) Test Positive Left Shoulder Love-Gil Impingement Positive Left Test Shoulder Neer Impingement Test Positive Left Shoulder
--- NOTE | 2020-12-08 08:46 | HMH.RHREAS ---
Rehab Reassessment Rehab OP Re-assessment Start: 12/08/20 08:09 Freq: Status: Active Protocol: Document 12/08/20 08:42 BUTCH (Rec: 12/08/20 08:46 BUTCH [id number]) Electronically Signed By Elan Choudhary, PT 12/08/20 08:42 Rehab Re-assessment Subjective Subjective PT REPORTS 0-3/10 L SH PAIN DEPENDENT UPON ACTIVITY ON VAS , AND FEELS 80-90% BETTER SINCE I EVAL Objective Objective Notes MMT: L SH FLX 4-4+/5, ABD 4/5, ER 4/5, IR 5/5, MID TRAP 4/5 AROM: SH FLX 0-150, ABD 0-155 TTP: L SH ANT DELT. MM 08/30, LHB 08/30 Assessment Progress Assessment Progressing as Expected Assessment Notes IMPROVED ROM, STRENGTH, AND TTP Patient goals met STG'S 03/02 LTG'S 01/02 Goals Not Met LTG'S 12/03 Plan Plan PT TO CONT. W/SKILLED P.T. TO MAKE FURTHER IMPROVEMENTS IN ROM, STRENGTH, AND TTP TO ALLOW FOR OPTIMAL FUNCTION Frequency of Therapy 2-3X/WK Duration of therapy 2-4WKS Time and Billing Re-Eval Time 10 Re-Eval Billing Units 1 PHYSICIAN CERTIFICATION: I certify the specified therapy services for Dwayne Mcgrath are required, authorized, and reviewed every 30 days.
== END 2020-12-10 08:05 | disposition home or self-care (01) ==
LOC: PT 08:00
PROVIDERS: PCP Internal Medicine Adolescent Medicine; Visit Provider Orthopaedic Surgery
DX: M25.512 Pain in left shoulder (principal); M75.112 Incomplete rotator cuff tear or rupture of left shoulder, not specified as traumatic; M75.52 Bursitis of left shoulder; M75.42 Impingement syndrome of left shoulder; M67.912 Unspecified disorder of synovium and tendon, left shoulder; M75.22 Bicipital tendinitis, left shoulder
CPT/HCPCS: 20560; 97010; 97014; 97110; 97163; 97164; G0283

== ENCOUNTER → 2021-04-05 08:13 | Outpatient (CLI) | payer BC, SELFPAY ==
[2021-04-05 09:09] LABS: Basophils % 0.9 % (0.1-2.0); Eosinophils # 0.1 K/mm3 (0.0-0.4); Eosinophils % 2.2 % (0.1-12.0); Hemoglobin 15.2 g/dL (14.1-18.0); Lymphocytes # 1.8 K/mm3 (0.7-4.5); Lymphocytes % 35.9 % (10-50); Mean Corpuscular HGB Conc 32.4 g/dL (31.8-35.4); Mean Corpuscular Volume 89.6 fl (80-94); Mean Platelet Volume 7.8 fl (7.4-10.4); Monocytes # 0.4 K/mm3 (0.1-1.0); Monocytes % 6.9 % (1.7-9.3); Neutrophils # 2.8 K/mm3 (1.8-7.8); Neutrophils % 54.2 % (37.0-80.0); Platelet Count 225 K/mm3 (142-424); Red Blood Count 5.25 M/mm3 (4.60-6.20); Red Cell Distribution Width 14.5 % (11.5-17.5); White Blood Count 5.1 K/mm3 (4.8-10.8)
[2021-04-05 09:42] LABS: Alanine Aminotransferase 36 U/L (12-78); Albumin Level 4.4 g/dl (3.5-5.0); Albumin/Globulin Ratio 1.8 (1.1-1.8); Alkaline Phosphatase 105 U/L (38-126); Anion Gap 9.5 mEq/L (5-15); Aspartate Amino Transferase 29 U/L (17-59); Bilirubin,Total 0.6 mg/dl (0.2-1.3); Blood Urea Nitrogen 15 mg/dl (9-20); Carbon Dioxide 21 mmol/L (22.0-30.0); Chloride 110 mmol/L (98-107); Chol/HDL Ratio 3.5 (1-3.5); Cholesterol 211 mg/dl (140-200); Estimated Glomerular Filt Rate 102 ml/min (>60); GFR (African American) 124 ML/MIN (>60); Globulin 2.4 g/dL (1.3-3.2); Glucose 93 mg/dl (74-100); HDL Cholesterol 60 mg/dl (40-60); Potassium 4.5 mmoL/L (3.5-5.1); Sodium 136 mmol/L (136-145); Total Protein,Serum 6.8 g/dl (6.3-8.2); Triglycerides 95 mg/dl (30-150); VLDL Cholesterol 19 mg/dL (0-40)
[2021-04-05 09:52] LABS: Direct LDL Cholesterol 119.15 mg/dL (100-129)
[2021-04-05 09:58] LABS: 25-OH Vitamin D, Total 34.8 ng/mL (30-100)
[2021-04-05 10:31] LABS: Vitamin B12 295 pg/mL (239-931)
== END ==
LOC: LAB 08:14
PROVIDERS: Visit Provider Internal Medicine Adolescent Medicine
DX: D51.0 Vitamin B12 deficiency anemia due to intrinsic factor deficiency (principal); E78.5 Hyperlipidemia, unspecified; E55.9 Vitamin D deficiency, unspecified
CPT/HCPCS: 36415; 80053; 80061; 82306; 82607; 85025

== ENCOUNTER → 2021-06-29 12:16 | Outpatient (CLI) | payer BC, SELFPAY | PROVIDERS: PCP Internal Medicine Adolescent Medicine; Visit Provider Specialist | DX: G47.30 Sleep apnea, unspecified (principal); R06.83 Snoring | CPT/HCPCS: G0399 ==

== ENCOUNTER → 2021-07-07 10:40 | Outpatient (CLI) | payer BC, SELFPAY ==
--- NOTE | 2021-07-07 10:45 | XR_ITS ---
PROCEDURE: XR CERVICAL SPINE W FLEX/EXT CLINICAL INDICATION: neck pain COMPARISON: No exams were available for comparison FINDINGS: Normal alignment. Mild degenerative disc disease C2-C3 C3-C4 C4-C5 and C5-C6. Anterior bone plate is present at C6-C7. There are posterior osteophytes noted at the endplates at C3-C4 and anterior osteophytes at C4-C5 and small posterior osteophytes at C5-C6. Foraminal narrowing is present on the right at C4-C5 and to lesser degree at C3-C4. Left-sided foraminal narrowing is present at C3-C4 C4-C5 and C5-C6 as well as C7-T1. No fracture or dislocation. No lytic or blastic change. Flexion and extension views of the cervical spine show no abnormal subluxation. IMPRESSION: Postsurgical change with cervical spondylosis as described above with foraminal narrowing. No abnormal subluxation in flexion or extension. Dictated by: Jimmy Jung MD 07/07/2021 14:11 Jimmy Jung MD in [facility] 07/07/2021 14:11
== END ==
LOC: RAD 10:42
PROVIDERS: PCP Internal Medicine Adolescent Medicine; Visit Provider Specialist
DX: M54.2 Cervicalgia (principal); R51.9 Headache, unspecified; M54.81 Occipital neuralgia; G47.33 Obstructive sleep apnea (adult) (pediatric)
CPT/HCPCS: 72052

== ENCOUNTER → 2021-07-14 07:20 | Outpatient (CLI) | payer BC, SELFPAY ==
--- NOTE | 2021-07-14 07:20 | MR_ITS ---
PROCEDURE INFORMATION: Exam: MR Cervical Spine Without Contrast Exam date and time: 07/14/2021 7:20 AM Age: 50 years old Clinical indication: Neck pain; Prior surgery; Surgery date: 6+ months; Additional info: Neck pain. HX neck surgery 2011. Neck pain. Lt arm pain. Numbness, and tingling. Bilateral shoulder pain. No injury or trauma. Prior x-ray 07-07-21 prior MR 10-08-12 TECHNIQUE: Imaging protocol: Multiplanar magnetic resonance images of the cervical spine without contrast. COMPARISON: CR XR CERVICAL SPINE W FLEX/EXT 07/07/2021 10:55 AM FINDINGS: Vertebrae: Anterior metallic side plate and cortical screws fuse C6 and C7. There is ankylosis of the C6-C7 intervertebral disc space. Spinal cord: Normal signal. No cord compression. C2-C3: There is a small right paracentral disc protrusion identified. No evidence of central canal stenosis. Exit foramina appear patent. C3-C4: Large wide-based posterior disc protrusion identified. This is associated with mild to moderate central canal stenosis. Mild left and moderate right exit foraminal encroachment is identified. C4-C5: Central posterior disc protrusion identified. There is mild central canal stenosis identified. Mild left and moderate right exit foraminal encroachment is noted. C5-C6: Small left lateral disc protrusion identified. No evidence of central canal stenosis. There is mild narrowing of the origin of the left C5-C6 exit foramen. C6-C7: Ankylosis of the intervertebral disc space. No significant spinal stenosis. C7-T1: Mild posterior annular bulging. No evidence of central canal stenosis. Exit foramina are patent. Soft tissues: Unremarkable. Vertebral arteries: Expected flow voids in the vertebral arteries. IMPRESSION: 1. C6-C7 fusion has been performed. 2. Small right paracentral disc protrusion at C2-C3 without evidence of central canal stenosis. 3. Large wide-based posterior disc protrusion at C3-C4 with mild to moderate central canal stenosis and bilateral exit foraminal encroachment. 4. Central posterior disc protrusion at C4-C5 with mild central canal stenosis. Exit foraminal encroachment is also identified at this level. 5. Small left lateral disc protrusion without evidence of central canal stenosis at C5-C6. Mild narrowing of the origin of the left C5-C6 exit foramen.
== END ==
LOC: RAD 07:20
PROVIDERS: PCP Internal Medicine Adolescent Medicine; Visit Provider Specialist
DX: M54.2 Cervicalgia (principal); M54.81 Occipital neuralgia; G47.33 Obstructive sleep apnea (adult) (pediatric); R51.9 Headache, unspecified
CPT/HCPCS: 72141; 76376

== ENCOUNTER → 2021-07-29 14:18 | Outpatient (CLI) | payer BC, SELFPAY | PROVIDERS: PCP Internal Medicine Adolescent Medicine; Visit Provider Nurse Practitioner | DX: Z20.822 Contact with and (suspected) exposure to COVID-19 (principal) | CPT/HCPCS: C9803; U0003; U0005 ==

== ENCOUNTER → 2021-08-02 16:45 | Outpatient (CLI) | payer BC, SELFPAY ==
[2021-08-02 16:59] LABS: Influenza A, PCR Not Detected (NotDetected); Influenza B, PCR Not Detected (NotDetected)
[2021-08-02 17:20] LABS: Coronavirus 19, PCR Detected (NotDetected)
== END ==
PROVIDERS: PCP Internal Medicine Adolescent Medicine; Visit Provider Internal Medicine Adolescent Medicine
DX: U07.1 COVID-19 (principal)
CPT/HCPCS: C9803; U0003; U0005

== ENCOUNTER → 2021-12-06 08:33 | Outpatient (POV) | payer BC, SELFPAY | PROVIDERS: Visit Provider Dermatology | DX: Z00.00 Encounter for general adult medical examination without abnormal findings (principal) ==

== ENCOUNTER → 2021-12-06 08:55 | Outpatient (CLI) | payer BC, SELFPAY ==
[2021-12-06 09:27] LABS: Basophils # 0.1 K/mm3 (0-0.2); Basophils % 1.3 % (0.1-2.0); Eosinophils # 0.2 K/mm3 (0.0-0.4); Eosinophils % 4.2 % (0.1-12.0); Hematocrit 47.1 % (42.0-52.0); Hemoglobin 15.4 g/dL (14.1-18.0); Lymphocytes # 1.6 K/mm3 (0.7-4.5); Lymphocytes % 34.8 % (10-50); Mean Corpuscular HGB Conc 32.7 g/dL (31.8-35.4); Mean Corpuscular Hemoglobin 30.2 pg (27.0-31.2); Mean Corpuscular Volume 92.5 fl (80-94); Mean Platelet Volume 8.1 fl (7.4-10.4); Monocytes # 0.3 K/mm3 (0.1-1.0); Monocytes % 6.6 % (1.7-9.3); Neutrophils # 2.5 K/mm3 (1.8-7.8); Neutrophils % 53.2 % (37.0-80.0); Platelet Count 271 K/mm3 (142-424); Red Blood Count 5.09 M/mm3 (4.60-6.20); Red Cell Distribution Width 13.8 % (11.5-17.5); White Blood Count 4.7 K/mm3 (4.8-10.8)
[2021-12-06 09:55] LABS: Chloride 110 mmol/L (98-107)
[2021-12-06 09:56] LABS: Potassium 4.5 mmoL/L (3.5-5.1); Sodium 139 mmol/L (136-145)
[2021-12-06 09:58] LABS: Alanine Aminotransferase 45 U/L (12-78); Albumin Level 4.3 g/dl (3.5-5.0); Albumin/Globulin Ratio 1.6 (1.1-1.8); Alkaline Phosphatase 97 U/L (38-126); Anion Gap 11.5 mEq/L (5-15); Aspartate Amino Transferase 28 U/L (17-59); Bilirubin,Total 0.6 mg/dl (0.2-1.3); Blood Urea Nitrogen 19 mg/dl (9-20); Carbon Dioxide 22 mmol/L (22.0-30.0); Estimated Glomerular Filt Rate 89 ml/min (>60); GFR (African American) 108 ML/MIN (>60); Globulin 2.7 g/dL (1.3-3.2)
[2021-12-06 09:59] LABS: Calcium 8.8 mg/dl (8.4-10.2); Chol/HDL Ratio 3.8 (1-3.5); Cholesterol 250 mg/dl (140-200); Glucose 95 mg/dl (74-100); HDL Cholesterol 65 mg/dl (40-60); Triglycerides 85 mg/dl (30-150); VLDL Cholesterol 17 mg/dL (0-40)
[2021-12-06 10:10] LABS: Direct LDL Cholesterol 140.05 mg/dL (100-129)
== END ==
LOC: LAB 08:56
PROVIDERS: Visit Provider Dermatology
DX: L70.0 Acne vulgaris (principal)
CPT/HCPCS: 36415; 80053; 80061; 85025

== ENCOUNTER 2022-05-06 08:32 | Emergency (ER) | payer BC, SELFPAY ==
--- NOTE | 2022-05-06 08:42 | EXP.UTC ---
Discharge Plan Disposition Patient Disposition: Home, Self-Care Condition: Good Prescriptions Prescriptions: New methylprednisolone 4 mg Tablets,Dose Pack 4 mg PO DIRECTED Qty: 21 0RF fluticasone propionate [Allergy Relief (fluticasone)] 50 mcg/actuation spray,suspension 2 spray intranasal DAILY Qty: 16 5RF Rx Instructions: administer into each nostril fluticasone propionate [Allergy Relief (fluticasone)] 50 mcg/actuation spray,suspension 2 spray intranasal DAILY Qty: 16 0RF Rx Instructions: administer into each nostril No Action cyanocobalamin (vitamin B-12) 1,000 mcg/mL solution 1,000 mcg SQ WEEKLY cholecalciferol (vitamin D3) 25 mcg (1,000 unit) capsule 25 mcg PO DAILY Referrals Follow up/Referrals: Alejandro Daily MD [Primary Care Provider] - See instructions Activity Restrictions/Add. Instructions Additional Instructions/Restrictions: Drink plenty of fluids. Take tylenol or ibuprofen for pain or fever. Take the medications as directed. Follow up with your regular doctor. GO TO THE ER FOR ANY WORSENING SYMPTOMS Don't start the oral steroids until tomorrow, since you had the shot here today. Clinical Impressions Clinical Impression: Allergic rhinitis Instructions Patient Instructions: DI for Allergic Rhinitis, Fluticasone Nasal [place], Methylprednisolone Injection Discharge ED Provider: Nikolas Garcia [facility] General Stated complaint: allergies Time Seen by Provider: 05/06/22 08:42 History of Present Illness Provider Complaint: He states that every year he has a severe flare up of seasonal allergies. He usually has to get a steroid shot and some oral medications to keep from getting sicker. He is currently having runny nose, nasal stuffiness, sinus pressure and bilateral ear pressure. He denies any fever or chills or other concerns. Related Data Home Medications Medication Instructions Recorded Confirmed cholecalciferol (vitamin D3) 25 25 mcg PO DAILY 06/09/21 09/08/21 mcg (1,000 unit) capsule cyanocobalamin (vitamin B-12) 1,000 mcg SQ WEEKLY 06/09/21 09/08/21 1,000 mcg/mL injection solution Previous Rx's Medication Instructions Recorded fluticasone propionate 50 2 spray intranasal DAILY #16 grams 05/06/22 mcg/actuation nasal spray,suspension (Allergy Relief (fluticasone)) fluticasone propionate 50 2 spray intranasal DAILY #16 grams 05/06/22 mcg/actuation nasal spray,suspension (Allergy Relief (fluticasone)) methylprednisolone 4 mg tablets in 4 mg PO DIRECTED #21 tabs 05/06/22 a dose pack Allergies Allergy/AdvReac Type Severity Reaction Status Date / Time No Known Allergies Allergy Verified 05/06/22 08:46 [facility] Social History Smoking Status: Never smoker alcohol intake: current substance use type: denies use current occupational status: employed Travel in the last 8 weeks: None household members: spouse and children housing: other ROS Obtained: Yes All systems reviewed & no additional complaints except as documented Constitutional Constitutional: Reports system reviewed and no additional complaints, except as documented, Denies chills and Denies fever(s) Eyes Eyes: Denies eye discharge ENT Ears, Nose, Mouth, and Throat: Denies dysphagia, Denies sore throat and Denies throat swelling Cardiovascular Cardiovascular: Denies chest pain and Denies dyspnea Respiratory Respiratory: Denies chest congestion, Denies cough and Denies dyspnea Gastrointestinal Gastrointestingal: Denies abdominal pain, constipation, diarrhea, dysphagia, nausea or vomiting Musculoskeletal Musculoskeletal: Denies arthralgias Integumentary/Breasts Skin/Breast: Denies rash Neurologic Neurologic: Denies paresthesias Allergic/Immunologic Allergic/Immunologic: Denies throat swelling Physical Exam General General appearance: alert and in no apparent d
[2022-05-06 08:44] VITALS: BP 133/88; PULSE 74; RESP 17; TEMP 36.6; O2SAT 97; BMI 28.7
[2022-05-06 09:16] VITALS: BP 133/88; PULSE 74; RESP 17; TEMP 36.6
== END 2022-05-06 09:20 | disposition home or self-care (01) ==
PROVIDERS: Emergency Provider Nurse Practitioner Family; PCP Internal Medicine Adolescent Medicine
DX: J30.9 Allergic rhinitis, unspecified (principal)
CPT/HCPCS: 96372; 99212; G0463

== ENCOUNTER 2022-06-22 03:39 | Emergency (ER) | payer BC, SELFPAY ==
[2022-06-22 03:41] VITALS: BP 153/94; PULSE 66; RESP 16; TEMP 36.6; O2SAT 100; BMI 28.7
--- NOTE | 2022-06-22 03:49 | HMH.EDGENADL ---
Discharge Plan Disposition Patient Disposition: Home, Self-Care Condition: Good Prescriptions Prescriptions: New (DME) nebulizers [AeroEclipse II Nebulizer] Misc See Rx Instructions .Route Qty: 1 0RF Rx Instructions: As directed Zyrtec 10 mg capsule 10 mg PO DAILY PRN (Reason: allergy symptoms) Qty: 30 0RF fluticasone propionate [Flonase Allergy Relief] 50 mcg/actuation spray,suspension 1 spray intranasal DAILY PRN (Reason: allergy symptoms) Qty: 16 0RF Rx Instructions: administer into each nostril albuterol sulfate 2.5 mg /3 mL (0.083 %) solution for nebulization 2.5 mg inhalation Q4H PRN (Reason: bronchospasm) Qty: 90 0RF No Action cyanocobalamin (vitamin B-12) 1,000 mcg/mL solution 1,000 mcg SQ WEEKLY cholecalciferol (vitamin D3) 25 mcg (1,000 unit) capsule 25 mcg PO DAILY methylprednisolone 4 mg Tablets,Dose Pack 4 mg PO DIRECTED Qty: 21 0RF fluticasone propionate [Allergy Relief (fluticasone)] 50 mcg/actuation spray,suspension 2 spray intranasal DAILY Qty: 16 5RF Rx Instructions: administer into each nostril fluticasone propionate [Allergy Relief (fluticasone)] 50 mcg/actuation spray,suspension 2 spray intranasal DAILY Qty: 16 0RF Rx Instructions: administer into each nostril Referrals Follow up/Referrals: Alejandro Daily MD [Primary Care Provider] - See instructions Activity Restrictions/Add. Instructions Additional Instructions/Restrictions: You were evaluated in the emergency department today. Use your inhaler at home as instructed. 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 Follow-up with your primary care provider over the next 48 hours. Return to the emergency department for any new or worsening symptoms. Clinical Impressions Clinical Impression: Allergic rhinitis, Asthma with exacerbation Instructions Patient Instructions: Asthma -- Adult, Allergic Rhinitis, DI for Shortness of Breath Discharge ED Provider: Crystal John General Adult HPI General Chief complaint: Shortness of Breath/Dyspnea Stated complaint: Difficulty Breathing Time Seen by Provider: 06/22/22 03:48 History of Present Illness HPI narrative: This patient is a 51-year-old male with a history of wheezing presenting to the emergency department for evaluation of shortness of breath. He reports that he had been cleaning out the garage last night and has had issues with shortness of breath and wheezing since. He states that he gets issues like this often, and typically it resolves with a nebulizer treatment. He try to find his nebulizer machine at home, however he could not find it. Given this, he came to the ED for evaluation. He denies any new symptoms, such as fever, chest pain, abdominal pain, nausea, vomiting, lightheadedness, changes bowel movements, or other concerns. He was well prior to this. Related Data Home Medications Medication Instructions Recorded Confirmed cholecalciferol (vitamin D3) 25 25 mcg PO DAILY 06/09/21 09/08/21 mcg (1,000 unit) capsule cyanocobalamin (vitamin B-12) 1,000 mcg SQ WEEKLY 06/09/21 09/08/21 1,000 mcg/mL injection solution Previous Rx's Medication Instructions Recorded fluticasone propionate 50 2 spray intranasal DAILY #16 grams 05/06/22 mcg/actuation nasal spray,suspension (Allergy Relief (fluticasone)) fluticasone propionate 50 2 spray intranasal DAILY #16 grams 05/06/22 mcg/actuation nasal spray,suspension (Allergy Relief (fluticasone)) methylprednisolone 4 mg tablets in 4 mg PO DIRECTED #21 tabs 05/06/22 a dose pack albuterol sulfate 2.5 mg/3 mL 2.5 mg (3 mL) inhalation Q4H PRN 06/22/22 (0.083 %) solution for nebulization bronchospasm #90 mL cetirizine 10 mg capsule (Zyrtec) 10 mg PO DAILY PRN allergy 06/22/22 symptoms #30 caps fluticasone propionate 50 1 spray intranasal DAILY PRN 06/22/22 mcg/actuation nasal allergy symptoms #16 grams spra
[2022-06-22 04:13] VITALS: PULSE 58
[2022-06-22 04:24] VITALS: BP 147/91; PULSE 60; RESP 18; TEMP 36.6; O2SAT 100
== END 2022-06-22 04:26 | disposition home or self-care (01) ==
LOC: ER 04:24
PROVIDERS: Emergency Provider Emergency Medicine; PCP Internal Medicine Adolescent Medicine
DX: J45.901 Unspecified asthma with (acute) exacerbation (principal)
CPT/HCPCS: 94640; 99283

== ENCOUNTER 2022-08-06 08:31 | Emergency (ER) | payer BC, SELFPAY ==
[2022-08-06 08:35] VITALS: BP 179/112; PULSE 81; RESP 20; TEMP 36.7; O2SAT 97; BMI 31.1
--- NOTE | 2022-08-06 08:43 | XR_ITS ---
PROCEDURE INFORMATION: Exam: XR Lumbosacral Spine Exam date and time: 08/06/2022 8:43 AM Age: 51 years old Clinical indication: Low back pain; Additional info: Pain- acute previous back surgery but having acute pain last couple days TECHNIQUE: Imaging protocol: Radiologic exam of the lumbosacral spine. Views: 2 or 3 views. COMPARISON: CR LS5 LUMBAR SPINE 5 VIEWS 12/06/2016 10:19 AM FINDINGS: Bones/joints: Status post laminectomy, pedicle screw fixation, and interbody spacer at the L5-S1 level with residual grade 1 anterolisthesis. Degenerative change. Soft tissues: Unremarkable. Other findings: Prominent stool. IMPRESSION: Status post laminectomy, pedicle screw fixation, and interbody spacer at the L5-S1 level with residual grade 1 anterolisthesis.
--- NOTE | 2022-08-06 09:05 | EXP.UTC ---
Discharge Plan Disposition Patient Disposition: Home, Self-Care Condition: Good Prescriptions Prescriptions: New prednisone [prednisone] 20 mg tablet 20 mg PO BID Qty: 10 0RF No Action cyanocobalamin (vitamin B-12) 1,000 mcg/mL solution 1,000 mcg SQ WEEKLY cholecalciferol (vitamin D3) 25 mcg (1,000 unit) capsule 25 mcg PO DAILY methylprednisolone 4 mg Tablets,Dose Pack 4 mg PO DIRECTED Qty: 21 0RF fluticasone propionate [Allergy Relief (fluticasone)] 50 mcg/actuation spray,suspension 2 spray intranasal DAILY Qty: 16 5RF Rx Instructions: administer into each nostril fluticasone propionate [Allergy Relief (fluticasone)] 50 mcg/actuation spray,suspension 2 spray intranasal DAILY Qty: 16 0RF Rx Instructions: administer into each nostril (DME) nebulizers [AeroEclipse II Nebulizer] Misc See Rx Instructions .Route Qty: 1 0RF Rx Instructions: As directed Zyrtec 10 mg capsule 10 mg PO DAILY PRN (Reason: allergy symptoms) Qty: 30 0RF fluticasone propionate [Flonase Allergy Relief] 50 mcg/actuation spray,suspension 1 spray intranasal DAILY PRN (Reason: allergy symptoms) Qty: 16 0RF Rx Instructions: administer into each nostril albuterol sulfate 2.5 mg /3 mL (0.083 %) solution for nebulization 2.5 mg inhalation Q4H PRN (Reason: bronchospasm) Qty: 90 0RF Referrals Follow up/Referrals: Alejandro Daily MD [Primary Care Provider] - See instructions Activity Restrictions/Add. Instructions Additional Instructions/Restrictions: CALL PCP IN AM FOR APPOINTMENT FOR MORE WORK UP IF ANY SYMPTOMS WORSEN OR DO NOT IMPROVE RETURN OR BE SEEN IN ED Clinical Impressions Clinical Impression: Back pain Instructions Patient Instructions: DI for Low Back Pain, Exercise May Reduce Risk of Low Back Pain Discharge ED Provider: Patricia ([facility])G[facility] General Stated complaint: Back pain, no accident Mode of Arrival: Ambulatory Source of Information: Patient Limitations: No Limitations Time Seen by Provider: 08/06/22 09:00 Description of Symptoms (Recalled from Triage Doc. by RN): PATIENT C/O LEFT LOWER BACK PAIN THAT STARTED 3 DAYS AGO. NO KNOWN INJURY. PATIENT DOES REPORT A HISTORY OF BACK FRACTURE AND SURGERY WITH RODS/PINS 2 YEARS AGO HEENT Symptoms (Recalled from RN notes): No Resp Symptoms (Recalled from RN notes): No Skin Symptoms (Recalled from RN notes): No MS Symptoms (Recalled from RN notes): Yes Functional Status (Recalled from RN notes): WNL History of Present Illness Provider Complaint: 51 YR OLD MALE C/O LEFT LOWER BACK PAIN THAT STARTED 3 DAYS AGO. NO KNOWN INJURY. PATIENT DOES REPORT A HISTORY OF BACK FRACTURE AND SURGERY WITH RODS/PINS 2 YEARS AGO. PT STATES NO LOSS OF BOWEL OR BLADDER. NO PAIN RADIATING. HAS TRIED NUMEROUS THINGS AND NOTHING IS HELPING RELIEVE THE PAIN. Related Data Home Medications Medication Instructions Recorded Confirmed cholecalciferol (vitamin D3) 25 25 mcg PO DAILY 06/09/21 09/08/21 mcg (1,000 unit) capsule cyanocobalamin (vitamin B-12) 1,000 mcg SQ WEEKLY 06/09/21 09/08/21 1,000 mcg/mL injection solution Previous Rx's Medication Instructions Recorded fluticasone propionate 50 2 spray intranasal DAILY #16 grams 05/06/22 mcg/actuation nasal spray,suspension (Allergy Relief (fluticasone)) fluticasone propionate 50 2 spray intranasal DAILY #16 grams 05/06/22 mcg/actuation nasal spray,suspension (Allergy Relief (fluticasone)) methylprednisolone 4 mg tablets in 4 mg PO DIRECTED #21 tabs 05/06/22 a dose pack albuterol sulfate 2.5 mg/3 mL 2.5 mg (3 mL) inhalation Q4H PRN 06/22/22 (0.083 %) solution for nebulization bronchospasm #90 mL cetirizine 10 mg capsule (Zyrtec) 10 mg PO DAILY PRN allergy 06/22/22 symptoms #30 caps fluticasone propionate 50 1 spray intranasal DAILY PRN 06/22/22 mcg/actuation nasal allergy symptoms #16 grams spray,suspension (Flonase Allergy Relief)
[2022-08-06 09:26] VITALS: BP 179/112; PULSE 81; RESP 20; TEMP 36.7; O2SAT 97
== END 2022-08-06 09:38 | disposition home or self-care (01) ==
PROVIDERS: Emergency Provider Nurse Practitioner Family; PCP Internal Medicine Adolescent Medicine
DX: M54.9 Dorsalgia, unspecified (principal)
CPT/HCPCS: 72100; 99212; G0463

== ENCOUNTER 2022-08-16 08:00 | Outpatient (RCR) | payer BC, SELFPAY ==
--- NOTE | 2022-08-10 10:06 | HMH.PTOPEV ---
PT Outpatient Evaluation Rehab PT Outpatient Evaluation Start: 08/10/22 09:02 Freq: Status: Active Protocol: Document 08/10/22 09:30 BUTCH (Rec: 08/10/22 10:05 BUTCH [id number]) E-signed By Elan Choudhary, PT Outpatient Therapy Subjective History Subjective History Pt reports acute onset left sided LBP beginning ~1 week ago, severe left of midline LBP. Pt reports some right sided LBP leading up to this exacerbation, right side now resolved, w/some referred pain into left glut mm. PMH: lumbar fusion L5-S1, w/ laminectomy, secondary to spondylolisthesis. Chief Complaint Pain,Stiff,Swelling Symptom Type Ache,Throb,Sharp,Dull,Stabbing Symptoms Relieved By Nothing Symptoms Aggravated By Bending/Stooping,Physical Activity,Twisting Prior Functional Limitations None Current Functional Limitations Lifting,Standing,Walking, Bending/Stooping Symptom Description Constant but Variable Level of pain today (0-10) 7 Pain scale - at its best (0-10) 7 Pain scale - at its worst (0-10) 10 Lumbopelvic Eval Posture Thoracic Spine Posture Standing Position Flattened Lumbar Spine Posture Standing Position Flattened Assistive device Assistive Devices None / NA Gait Observation General Gait Pattern Observation Antalgic Gait Palapation tenderness left lumbar spinal tenderness Yes: 3/4 paraspinal tenderness Yes: 3/4 buttock tenderness Yes: 3/4 Lumbar/Sacral Palpation Findings Tenderness,Trigger Point, Muscle Guarding Accessory Movement L-spine Vertebrae Accessory Movements Central [employer] [place] that Elicit Symptoms L3 left L4 left Range of Motion Lumbar Spine Active Flexion Range of 0-30 Motion (degrees) Lumbar Spine Active Extension Range of 0 Motion (degrees) Left Lumbar Spine Lateral Flexion Active 0-15 Range of Motion (degrees) Right Lumbar Spine Lateral Flexion 0-10 Active Range of Motion (degrees) Manual Muscle Test Bilateral Knee Extension Strength Grade 5 Normal Knee Flexion Strength Grade 4 Good Hip Flexion Strength Grade 4 Good Extensor Hallucis Longus Strength Grade 5 Normal Ankle Dorsiflexion Strength Grade 5 Normal Gastronemius/Soleus Strength Grade 5 Normal DTR Rt Patellar 1+ Lt Patellar 1+ Rt
== END 2022-08-16 09:00 | disposition home or self-care (01) ==
LOC: PT 08:00
PROVIDERS: PCP Internal Medicine Adolescent Medicine; Visit Provider Nurse Practitioner Family
DX: M54.50 Low back pain, unspecified (principal)
CPT/HCPCS: 20561; 97010; 97014; 97110; 97163; G0283

== ENCOUNTER 2022-12-15 07:53 | Emergency (ER) | payer BC, SELFPAY ==
[2022-12-15 08:00] VITALS: BP 151/92; PULSE 66; RESP 18; TEMP 36.6; O2SAT 95; BMI 29.3
--- NOTE | 2022-12-15 08:03 | XR_ITS ---
FINAL REPORT CLINICAL HISTORY: foot injury FINDINGS: Left foot Three views were obtained. There is no acute fracture or dislocation. There are mild degenerative changes. No soft tissue abnormality is identified. There are postoperative changes in the calcaneus with a screw. Small posterior calcaneal spur is identified. IMPRESSION: Degenerative and postoperative changes as above. Reviewed, Interpreted and Dictated by Deshaun Gilliam III, MD Transcribed by Jimena Rizo Authenticated and [facility]
--- NOTE | 2022-12-15 08:19 | HMH.EDGENADL ---
Discharge Plan Disposition Patient Disposition: Home, Self-Care Prescriptions Prescriptions: No Action cyanocobalamin (vitamin B-12) 1,000 mcg/mL solution 1,000 mcg SQ WEEKLY cholecalciferol (vitamin D3) 25 mcg (1,000 unit) capsule 25 mcg PO DAILY methylprednisolone 4 mg Tablets,Dose Pack 4 mg PO DIRECTED Qty: 21 0RF fluticasone propionate [Allergy Relief (fluticasone)] 50 mcg/actuation spray,suspension 2 spray intranasal DAILY Qty: 16 5RF Rx Instructions: administer into each nostril fluticasone propionate [Allergy Relief (fluticasone)] 50 mcg/actuation spray,suspension 2 spray intranasal DAILY Qty: 16 0RF Rx Instructions: administer into each nostril (DME) nebulizers [AeroEclipse II Nebulizer] Misc See Rx Instructions .Route Qty: 1 0RF Rx Instructions: As directed Zyrtec 10 mg capsule 10 mg PO DAILY PRN (Reason: allergy symptoms) Qty: 30 0RF fluticasone propionate [Flonase Allergy Relief] 50 mcg/actuation spray,suspension 1 spray intranasal DAILY PRN (Reason: allergy symptoms) Qty: 16 0RF Rx Instructions: administer into each nostril albuterol sulfate 2.5 mg /3 mL (0.083 %) solution for nebulization 2.5 mg inhalation Q4H PRN (Reason: bronchospasm) Qty: 90 0RF prednisone [prednisone] 20 mg tablet 20 mg PO BID Qty: 10 0RF Referrals Follow up/Referrals: Alejandro Daily MD [Primary Care Provider] - See instructions Activity Restrictions/Add. Instructions Additional Instructions/Restrictions: Please follow-up with an orthopedist in about 5 to 7 days. The x-ray today showed a fracture of your fourth left toe. It should heal without surgery. However you should follow-up with an orthopedist to make sure it heals properly. Return to the emergency department immediately if you worsen in any way. Follow-up with your primary care doctor as needed. You may take [id number] Tylenol and or Motrin for the pain as needed. Clinical Impressions Clinical Impression: Fracture of toe of left foot Qualifiers: Encounter type: initial encounter Toe: lesser toe Fracture type: closed Phalanx: proximal Fracture alignment: nondisplaced Qualified Code(s): S92.515A - Nondisplaced fracture of proximal phalanx of left lesser toe(s), initial encounter for closed fracture Discharge ED Provider: Asif Balderrama General Adult HPI General Chief complaint: PAIN Stated complaint: AO@home 12/15 LT foot pain Time Seen by Provider: 12/15/22 08:19 Mode of Arrival: Ambulatory Source of Information: Patient and Spouse Limitations: No Limitations Description of Symptoms (Recalled from ER Triage Doc. by RN): Presents POV d/t left foot pain after tripping over a baby gate this morning. Able to bear weight. History of Present Illness HPI narrative: The patient presents to the emergency department complaining of a left foot injury. He tripped over a baby gate this morning. He denies any other injuries Related Data Home Medications Medication Instructions Recorded Confirmed cholecalciferol (vitamin D3) 25 25 mcg PO DAILY 06/09/21 09/08/21 mcg (1,000 unit) capsule cyanocobalamin (vitamin B-12) 1,000 mcg SQ WEEKLY 06/09/21 09/08/21 1,000 mcg/mL injection solution Previous Rx's Medication Instructions Recorded fluticasone propionate 50 2 spray intranasal DAILY #16 grams 05/06/22 mcg/actuation nasal spray,suspension (Allergy Relief (fluticasone)) fluticasone propionate 50 2 spray intranasal DAILY #16 grams 05/06/22 mcg/actuation nasal spray,suspension (Allergy Relief (fluticasone)) methylprednisolone 4 mg tablets in 4 mg PO DIRECTED #21 tabs 05/06/22 a dose pack albuterol sulfate 2.5 mg/3 mL 2.5 mg (3 mL) inhalation Q4H PRN 06/22/22 (0.083 %) solution for nebulization bronchospasm #90 mL cetirizine 10 mg capsule (Zyrtec) 10 mg PO DAILY PRN allergy 06/22/22 symptoms #30 caps fluticasone propionate 50 1 spray intranasal DAILY PRN 06/22/22
--- NOTE | 2022-12-15 08:28 | PC.NURSE ---
pt arrived back to room from xray
[2022-12-15 08:33] VITALS: BP 142/91; PULSE 69; O2SAT 95
--- NOTE | 2022-12-15 08:36 | PC.NURSE ---
Rounded on patient, no needs at this time. call light within reach. Spouse at BS, no needs at this time as well.
--- NOTE | 2022-12-15 09:48 | PC.NURSE ---
rounded on pt no complaints at this time, at bs
[2022-12-15 10:17] VITALS: BP 170/97; PULSE 56; RESP 18; O2SAT 97
[2022-12-15 10:22] VITALS: BP 170/97; PULSE 54; RESP 18; TEMP 36.6; O2SAT 97
== END 2022-12-15 10:24 | disposition home or self-care (01) ==
PROVIDERS: Emergency Provider Emergency Medicine; PCP Internal Medicine Adolescent Medicine
DX: S92.515A Nondisplaced fracture of proximal phalanx of left lesser toe(s), initial encounter for closed fracture (principal); F17.220 Nicotine dependence, chewing tobacco, uncomplicated; W18.42XA Slipping, tripping and stumbling without falling due to stepping into hole or opening, initial encounter
CPT/HCPCS: 73630; 96372; 99283; 99284

== ENCOUNTER 2023-03-10 18:14 | Emergency (ER) | payer BC, SELFPAY ==
[2023-03-10 18:22] VITALS: BP 164/103; PULSE 74; RESP 20; TEMP 36.9; O2SAT 99; BMI 28.7
--- NOTE | 2023-03-10 18:25 | CT_ITS ---
PROCEDURE INFORMATION: Exam: CT Abdomen And Pelvis Without Contrast Exam date and time: 03/10/2023 6:35 PM Age: 52 years old Clinical indication: Abdominal pain; Flank; Right; Additional info: Rlq abd pain, h/o stone TECHNIQUE: Imaging protocol: Computed tomography of the abdomen and pelvis without contrast. Total images: 318 Radiation optimization: All CT scans at this facility use at least one of these dose optimization techniques: automated exposure control; mA and/or kV adjustment per patient size (includes targeted exams where dose is matched to clinical indication); or iterative reconstruction. REPORTING DATA: Count of CT and Cardiac NM exams in prior 12 months: This patient has received 0 known CTs and 0 known cardiac nuclear medicine studies in the 12 months prior to the current study. COMPARISON: CT ABDOMEN PELVIS WO/W CON 04/23/2020 10:09 AM FINDINGS: Lungs: Lung bases are clear. Heart: Normal heart size. Liver: Normal. No mass. Gallbladder and bile ducts: Normal. No calcified stones. No ductal dilation. Pancreas: Normal. No ductal dilation. Spleen: Normal. No splenomegaly. Adrenal glands: Low-attenuation nodular thickening of the right adrenal gland compatible with lipid rich adenoma. Unremarkable left adrenal gland. Kidneys and ureters: Mild right hydronephrosis and right hydroureter to the bladder. Punctate/amorphous lower pole right intrarenal calculus, axial image 55. Mild bilateral perinephric fat stranding. No left hydronephrosis. No left intrarenal calculi. Subcentimeter left renal cortical hypodensity, too small to characterize but statistically a cyst. Stomach and bowel: Unremarkable stomach. Multiple duodenal diverticulum. No ileus or bowel obstruction. Small bowel appears within normal limits. Unremarkable colon and rectum. Appendix: Normal appendix. Intraperitoneal space: Unremarkable. No free air. No significant fluid collection. Vasculature: Aorta is normal in caliber. Pelvic phleboliths. Lymph nodes: Unremarkable. No enlarged lymph nodes. Urinary bladder: 4 x 6 mm bladder stone. No bladder wall thickening. Reproductive: Nonenlarged prostate. Bones/joints: No acute osseous abnormality. Status post laminectomy and posterior fusion at L5-S1. No hardware loosening. Grade 1 anterior spondylolisthesis L5-S1. Moderate degenerative changes lumbar spine. Mild degenerative changes bilateral hips and SI joints. No concerning bone lesions. Soft tissues: Tiny fat containing right inguinal hernia. Diastasis of the rectus fascia. Tiny fat containing umbilical hernia. IMPRESSION: 1. Mild right hydronephrosis and hydroureter to the bladder. 2. 4 x 6 mm bladder stone, most likely recently passed from the right ureter. 3. Punctate/amorphous nonobstructing right intrarenal calculus. 4. Additional chronic and incidental findings. COMMENTS: Consistent with the [employer]'s Incidental Findings Committee white paper (J Am Romelia Radiol 2018): Any incidental renal lesion less than 1 cm or classified as too small to characterize, or any incidental cystic renal lesion characterized as simple-appearing, is likely benign. No follow-up imaging is recommended for these lesions per consensus recommendations based on imaging criteria.
--- NOTE | 2023-03-10 18:27 | HMH.EDGENADL ---
Discharge Plan Disposition Patient Disposition: Home, Self-Care Prescriptions Prescriptions: New ibuprofen 800 mg tablet 800 mg PO TID PRN (Reason: pain) 7 Days Qty: 20 0RF hydrocodone-acetaminophen 5-325 mg tablet 1 tab PO Q6H PRN (Reason: pain) 3 Days Qty: 12 0RF tamsulosin [Flomax] 0.4 mg capsule 0.4 mg PO DAILY 7 Days Qty: 7 0RF ondansetron 4 mg tablet,disintegrating 4 mg PO Q6H PRN (Reason: nausea and vomiting) 5 Days Qty: 20 0RF No Action cyanocobalamin (vitamin B-12) 1,000 mcg/mL solution 1,000 mcg SQ WEEKLY cholecalciferol (vitamin D3) 25 mcg (1,000 unit) capsule 25 mcg PO DAILY methylprednisolone 4 mg Tablets,Dose Pack 4 mg PO DIRECTED Qty: 21 0RF fluticasone propionate [Allergy Relief (fluticasone)] 50 mcg/actuation spray,suspension 2 spray intranasal DAILY Qty: 16 5RF Rx Instructions: administer into each nostril fluticasone propionate [Allergy Relief (fluticasone)] 50 mcg/actuation spray,suspension 2 spray intranasal DAILY Qty: 16 0RF Rx Instructions: administer into each nostril (DME) nebulizers [AeroEclipse II Nebulizer] Misc See Rx Instructions .Route Qty: 1 0RF Rx Instructions: As directed Zyrtec 10 mg capsule 10 mg PO DAILY PRN (Reason: allergy symptoms) Qty: 30 0RF fluticasone propionate [Flonase Allergy Relief] 50 mcg/actuation spray,suspension 1 spray intranasal DAILY PRN (Reason: allergy symptoms) Qty: 16 0RF Rx Instructions: administer into each nostril albuterol sulfate 2.5 mg /3 mL (0.083 %) solution for nebulization 2.5 mg inhalation Q4H PRN (Reason: bronchospasm) Qty: 90 0RF prednisone [prednisone] 20 mg tablet 20 mg PO BID Qty: 10 0RF Referrals Follow up/Referrals: Alejandro Daily MD [Primary Care Provider] - See instructions Activity Restrictions/Add. Instructions Additional Instructions/Restrictions: Your CT scan demonstrated a 4 x 6 mm calculus within the bladder. This is consistent with a recently passed stone from the ureter into the bladder. It is unlikely that you have any significant symptoms for the remainder of passage however if you do have persistent symptoms I would make an appointment with urology and prescription medications have been sent to your pharmacy in the event that your symptoms return. Clinical Impressions Clinical Impression: Acute right flank pain, Bladder calculus Instructions Patient Instructions: DI for Acute Abdominal Pain Discharge ED Provider: Aries Ewing General Adult HPI General Chief complaint: Abdominal Pain Stated complaint: lower abdomen pain Time Seen by Provider: 03/10/23 18:21 Mode of Arrival: Ambulatory Source of Information: Patient Limitations: No Limitations Description of Symptoms (Recalled from ER Triage Doc. by RN): pt to ed c/o right flank pain that suddenly got worse today. pt states an extensive hx of kidney stones. pt denies any blood in his urine. pt denies n/v. History of Present Illness HPI narrative: Patient is a 52-year-old male with a history of multiple kidney stones that required surgical intervention present today with what he feels is another kidney stone. States this began over the last few weeks but significantly worsened today. No nausea and vomiting associated with it pain initially was at the right flank but now is localized to the right lower quadrant. No tenderness. Still has his appendix. No hematuria or burning frequency or urgency. No other change in bowel movements. Related Data Home Medications Medication Instructions Recorded Confirmed cholecalciferol (vitamin D3) 25 25 mcg PO DAILY 06/09/21 12/22/22 mcg (1,000 unit) capsule cyanocobalamin (vitamin B-12) 1,000 mcg SQ WEEKLY 06/09/21 12/22/22 1,000 mcg/mL injection solution Previous Rx's Medication Instructions Recorded fluticasone propionate 50 2 spray intranasal DAILY #16 grams 05/06/22 mcg/actuation nasal spray,suspension
[2023-03-10 18:34] LABS: Basophils # 0.1 K/mm3 (0-0.2); Basophils % 0.6 % (0.1-2.0); Eosinophils # 0.2 K/mm3 (0.0-0.4); Eosinophils % 2.6 % (0.1-12.0); Hematocrit 46.7 % (42.0-52.0); Lymphocytes # 2.7 K/mm3 (0.7-4.5); Lymphocytes % 32.6 % (10-50); Mean Corpuscular HGB Conc 32.2 g/dL (31.8-35.4); Mean Corpuscular Hemoglobin 28.4 pg (27.0-31.2); Mean Corpuscular Volume 88.3 fl (80-94); Mean Platelet Volume 8.3 fl (7.4-10.4); Monocytes # 0.6 K/mm3 (0.1-1.0); Monocytes % 7.4 % (1.7-9.3); Neutrophils # 4.7 K/mm3 (1.8-7.8); Neutrophils % 56.8 % (37.0-80.0); Platelet Count 264 K/mm3 (142-424); Red Blood Count 5.29 M/mm3 (4.60-6.20); Red Cell Distribution Width 13.8 % (11.5-17.5); White Blood Count 8.3 K/mm3 (4.8-10.8)
[2023-03-10 18:35] LABS: Chloride 107 mmol/L (98-107); Potassium 4.4 mmoL/L (3.5-5.1); Sodium 139 mmol/L (136-145)
[2023-03-10 18:38] LABS: Anion Gap 14.4 mEq/L (5-15); Blood Urea Nitrogen 23 mg/dl (9-20); Calcium 10.3 mg/dl (8.4-10.2); Carbon Dioxide 22 mmol/L (22.0-30.0); Creatinine Clearance Estimated 142 mL/min (50-200); Estimated Glomerular Filt Rate 89 ml/min (>60); GFR (African American) 107 ML/MIN (>60); Glucose 97 mg/dl (74-100)
[2023-03-10 19:46] VITALS: BP 142/91; PULSE 79; RESP 18; TEMP 37.1
[2023-03-10 19:51] VITALS: BP 151/72; PULSE 81; RESP 16; TEMP 36.2; O2SAT 98
== END 2023-03-10 19:49 | disposition home or self-care (01) ==
PROVIDERS: Emergency Provider Student in an Organized Health Care Education/Training Program; PCP Internal Medicine Adolescent Medicine
DX: N21.0 Calculus in bladder (principal); R10.31 Right lower quadrant pain
CPT/HCPCS: 74176; 80048; 85025; 96361; 96374; 96375; 99285; J2405

== ENCOUNTER 2023-09-19 18:55 | Outpatient (CLI) | payer BC, SELFPAY | END 2023-09-19 23:59 | LOC: LAB.DROPOF 18:55 | PROVIDERS: PCP Nurse Practitioner Family; Visit Provider Nurse Practitioner Family | DX: R07.0 Pain in throat (principal); R09.81 Nasal congestion | CPT/HCPCS: 87070 ==

== ENCOUNTER 2023-11-02 11:24 | Outpatient (CLI) | payer BC, SELFPAY ==
--- NOTE | 2023-11-02 11:29 | XR_ITS ---
FINAL REPORT CLINICAL HISTORY: Right hand pain and swelling FINDINGS: RIGHT HAND: 3 views of the right hand were obtained. There is no acute fracture or dislocation. Findings are consistent with prior surgery from presumed resection of a portion of the scaphoid, lunate and triquetrum. There are moderate degenerative changes at the radial aspect of the wrist. There is a small soft tissue calcification in the medial aspect of the wrist. There is a chronic deformity of the fifth metacarpal consistent with a prior fracture. IMPRESSION: Postoperative and chronic changes with no acute bony abnormality. Reviewed, Interpreted and Dictated by Deshaun Gilliam III, MD Transcribed by Ana Carlos Authenticated and [facility]
--- NOTE | 2023-11-02 11:29 | XR_ITS ---
FINAL REPORT CLINICAL HISTORY: Chronic left shoulder pain FINDINGS: LEFT SHOULDER 3 views demonstrate no acute fracture or dislocation. There are mild degenerative changes in the acromioclavicular joint. The visualized bony structures are well aligned. No soft tissue abnormality is seen. There are postoperative changes in the lower cervical spine. IMPRESSION: No acute process. Reviewed, Interpreted and Dictated by Deshaun Gilliam III, MD Transcribed by Ana Carlos Authenticated and [facility]
--- NOTE | 2023-11-02 11:29 | XR_ITS ---
FINAL REPORT CLINICAL HISTORY: Chronic right shoulder pain FINDINGS: RIGHT SHOULDER Two views demonstrate no acute fracture or dislocation. 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 There are mild degenerative changes of the acromioclavicular joint. No soft tissue abnormality is seen. Postoperative changes are seen in the lower cervical spine. IMPRESSION: Degenerative changes with no acute bony abnormality. Reviewed, Interpreted and Dictated by Deshaun Gilliam III, MD Transcribed by Ana Carlos Authenticated and . [facility]
--- NOTE | 2023-11-02 11:29 | XR_ITS ---
FINAL REPORT CLINICAL HISTORY: Swelling and pain in left hand FINDINGS: LEFT HAND: 3 views of the left hand were obtained. There is no acute fracture or dislocation. There is a 3 mm lytic focus in the distal third metacarpal diaphysis. This may represent a cyst or enchondroma. There are mild degenerative changes. There is a 1 mm foreign body lateral to the first metacarpal. There is a 2 mm foreign body lateral to the second metacarpal diaphysis. A 1 mm foreign body is seen at the tip of the third digit. IMPRESSION: No acute bony abnormality. Lytic focus in the distal third metacarpal diaphysis may represent a cyst or enchondroma. Multiple foreign bodies as above. Reviewed, Interpreted and Dictated by Deshaun Gilliam III, MD Transcribed by Ana Carlos Authenticated and [facility]
[2023-11-02 13:07] LABS: C-Reactive Protein 2.6 mg/L (0-4)
[2023-11-03 15:51] LABS: RA Latex Turbid. <10.0 IU/mL (<14.0)
[2023-11-05 12:25] LABS: Anti-Centromere B Antibodies <0.2 AI (0.0-0.9); Anti-DNA (DS) Ab Qn 4 IU/mL (0-9); Anti-Jo-1 <0.2 AI (0.0-0.9); Anti-Smith Antibody <0.2 AI (0.0-0.9); Antichromatin Antibodies 0.3 AI (0.0-0.9); Antiscleroderma-70 Antibodies <0.2 AI (0.0-0.9); RNP Antibodies <0.2 AI (0.0-0.9); Sjogren's Anti-SS-A <0.2 AI (0.0-0.9); Sjogren's Anti-SS-B <0.2 AI (0.0-0.9)
== END 2023-11-02 23:59 ==
LOC: LAB 11:25
PROVIDERS: PCP Internal Medicine Adolescent Medicine; Visit Provider Internal Medicine Adolescent Medicine
DX: M25.50 Pain in unspecified joint (principal); M79.89 Other specified soft tissue disorders; Z87.81 Personal history of (healed) traumatic fracture
CPT/HCPCS: 36415; 73030; 73130; 86140; 86225; 86235; 86431

== ENCOUNTER 2023-12-18 15:14 | Outpatient (CLI) | payer BC, SELFPAY ==
[2023-12-18 15:28] LABS: Basophils # 0.1 K/mm3 (0-0.2); Basophils % 0.8 % (0.1-2.0); Eosinophils # 0.1 K/mm3 (0.0-0.4); Eosinophils % 1.3 % (0.1-12.0); Hematocrit 46.4 % (42.0-52.0); Hemoglobin 15.1 g/dL (14.1-18.0); Lymphocytes # 2.3 K/mm3 (0.7-4.5); Lymphocytes % 29.6 % (10-50); Mean Corpuscular HGB Conc 32.5 g/dL (31.8-35.4); Mean Corpuscular Hemoglobin 30.3 pg (27.0-31.2); Mean Corpuscular Volume 93.3 fl (80-94); Monocytes # 0.4 K/mm3 (0.1-1.0); Monocytes % 5.8 % (1.7-9.3); Neutrophils # 4.7 K/mm3 (1.8-7.8); Neutrophils % 62.5 % (37.0-80.0); Platelet Count 238 K/mm3 (142-424); Red Blood Count 4.97 M/mm3 (4.60-6.20); Red Cell Distribution Width 14.4 % (11.5-17.5); White Blood Count 7.6 K/mm3 (4.8-10.8)
[2023-12-18 16:52] LABS: Alanine Aminotransferase 34 U/L (12-78); Albumin Level 4.5 g/dl (3.5-5.0); Albumin/Globulin Ratio 1.7 (1.1-1.8); Alkaline Phosphatase 79 U/L (38-126); Anion Gap 10.2 mEq/L (5-15); Aspartate Amino Transferase 27 U/L (17-59); Bilirubin,Total 0.4 mg/dl (0.2-1.3); Blood Urea Nitrogen 21 mg/dl (9-20); Calcium 10.4 mg/dl (8.4-10.2); Carbon Dioxide 26 mmol/L (22.0-30.0); Chloride 108 mmol/L (98-107); Chol/HDL Ratio 3.3 (1-3.5); Cholesterol 246 mg/dl (140-200); Estimated Glomerular Filt Rate 88 ml/min (>60); GFR (African American) 107 ML/MIN (>60); Globulin 2.6 g/dL (1.3-3.2); Glucose 98 mg/dl (74-100); HDL Cholesterol 74 mg/dl (40-60); Potassium 4.2 mmoL/L (3.5-5.1); Sodium 140 mmol/L (136-145); Total Protein,Serum 7.1 g/dl (6.3-8.2); Triglycerides 140 mg/dl (30-150); VLDL Cholesterol 28 mg/dL (0-40)
[2023-12-18 17:05] LABS: Direct LDL Cholesterol 109.96 mg/dL (100-129)
== END 2023-12-18 23:59 | disposition home or self-care (01) ==
LOC: LAB 15:14
PROVIDERS: PCP Internal Medicine Adolescent Medicine; Visit Provider Dermatology
DX: I40.0 Infective myocarditis (principal); L70.9 Acne, unspecified; Z79.899 Other long term (current) drug therapy
CPT/HCPCS: 36415; 80053; 80061; 85025

== ENCOUNTER 2023-12-18 15:31 | Outpatient (POV) | payer BC, SELFPAY | END 2023-12-18 23:59 | disposition home or self-care (01) | LOC: SC 15:32 | PROVIDERS: PCP Internal Medicine Adolescent Medicine; Visit Provider Dermatology | DX: Z00.00 Encounter for general adult medical examination without abnormal findings (principal) ==

== ENCOUNTER 2024-02-20 12:36 | Emergency (ER) | payer BC, SELFPAY ==
[2024-02-20] VITALS (8 sets, daily range): BP systolic 115–147; BP diastolic 73–90; PULSE 59–79; RESP 18–20; TEMP 37.1; O2SAT 93–98; BMI 29.9
--- NOTE | 2024-02-20 13:10 | PC.NURSE ---
DR MOSQUERA AT BEDSIDE
--- NOTE | 2024-02-20 13:18 | CT_ITS ---
FINAL REPORT TECHNIQUE: Oral and IV contrast enhanced exam CLINICAL HISTORY: severe epigastric abdominal pain COMPARISON: 03/10/2023 FINDINGS: Abdomen: No acute density is seen within the lung bases. The gallbladder is unremarkable. Solid abdominal organs are unremarkable. No bowel obstruction is present. There is no free air. No fluid collection is seen. There is no adenopathy. Pelvis: The appendix is normal. No bowel wall thickening is present. There is no free fluid. No pelvic mass is seen. IMPRESSION: Unremarkable CT of the abdomen and pelvis with contrast. No findings are noted to explain the patient's symptoms. Reviewed, Interpreted and Dictated by Kamlesh Duval MD Transcribed by Natividad Lua Authenticated and [facility]
--- NOTE | 2024-02-20 13:23 | ED_ITS ---
Discharge Plan Disposition Patient Disposition: Home, Self-Care Prescriptions Prescriptions: No Action cyanocobalamin (vitamin B-12) 1,000 mcg/mL solution 1,000 mcg SQ WEEKLY cholecalciferol (vitamin D3) 25 mcg (1,000 unit) capsule 25 mcg PO DAILY methylprednisolone [Medrol (Eben)] 4 mg tablets,dose pack See Rx Instructions PO PER PKG DIR Qty: 21 0RF Rx Instructions: PO PER PKG DIR fluticasone propionate [Allergy Relief (fluticasone)] 50 mcg/actuation spray,suspension 2 spray intranasal DAILY Qty: 16 0RF Rx Instructions: administer into each nostril (DME) nebulizers [AeroEclipse II Nebulizer] Misc See Rx Instructions .Route Qty: 1 0RF Rx Instructions: As directed Zyrtec 10 mg capsule 10 mg PO DAILY PRN (Reason: allergy symptoms) Qty: 30 0RF fluticasone propionate [Flonase Allergy Relief] 50 mcg/actuation spray,suspension 1 spray intranasal DAILY PRN (Reason: allergy symptoms) Qty: 16 0RF Rx Instructions: administer into each nostril albuterol sulfate 2.5 mg /3 mL (0.083 %) solution for nebulization 2.5 mg inhalation Q4H PRN (Reason: bronchospasm) Qty: 90 0RF tamsulosin [Flomax] 0.4 mg capsule 0.4 mg PO DAILY 7 Days Qty: 7 0RF Referrals Follow up/Referrals: Deshaun Ruvalcaba MD [Staff Physician] - See instructions Alejandro Daily MD [Primary Care Provider] - See instructions Activity Restrictions/Add. Instructions Additional Instructions/Restrictions: Your postprandial abdominal pain is concerning for peptic ulcer disease. I would take [id number] Pepcid and antacids until you are seen by our general surgeon Dr. Ruvalcaba for a scheduled outpatient endoscopy. You may also follow-up with the auto air conditioning installer of your choosing if you would prefer. No emergent medical condition identified today. Clinical Impressions Clinical Impression: Postprandial abdominal pain in right upper quadrant, Abdominal pain, epigastric Discharge ED Provider: Aries Ewing General Adult HPI General Chief complaint: PAIN Stated complaint: Pain in abd and back Time Seen by Provider: 02/20/24 13:07 Mode of Arrival: Ambulatory Source of Information: Patient Limitations: No Limitations Description of Symptoms (Recalled from ER Triage Doc. by RN): pt to ed c/o linear epigastric abd pain. pt states the pain started approx 2w ago and is mildly resolved when he adds pressure. pt reports that this week the pain started to radiate into his ribs and right lower back. pt denies urinary symptoms. pt denies n/v/d. History of Present Illness HPI narrative: Patient is a 53-year-old male presenting today with epigastric abdominal discomfort. States has been ongoing for the last 2 weeks is postprandial in nature every time that he eats is associated with epigastric right upper and left upper quadrant abdominal pain radiating through to his back. Patient denies any exertional chest pain. No shortness of breath. No hematemesis no melena. Still has his gallbladder has not had any abdominal surgeries has a history of hypertension and multiple orthopedic surgeries in the past but is otherwise healthy. Related Data Home Medications Medication Instructions Recorded Confirmed cholecalciferol (vitamin D3) 25 25 mcg PO DAILY 06/09/21 11/20/23 mcg (1,000 unit) capsule cyanocobalamin (vitamin B-12) 1,000 mcg SQ WEEKLY 06/09/21 11/20/23 1,000 mcg/mL injection solution Previous Rx's Medication Instructions Recorded fluticasone propionate 50 2 spray intranasal DAILY #16 grams 05/06/22 mcg/actuation nasal spray,suspension (Allergy Relief (fluticasone)) albuterol sulfate 2.5 mg/3 mL 2.5 mg (3 mL) inhalation Q4H PRN 06/22/22 (0.083 %) solution for nebulization bronchospasm #90 mL cetirizine 10 mg capsule (Zyrtec) 10 mg PO DAILY PRN allergy 06/22/22 symptoms #30 caps fluticasone propionate 50 1 spray intranasal DAILY PRN 06/22/22 mcg/actuation nasal allergy symptoms #16 grams spray,suspension (Flonase Allergy Relief) nebulizers (AeroEclipse II #1 ea 06/22/22 Nebulizer) tamsulosin 0.4 mg capsule (Flomax) 0.4 mg PO DAILY 7 days #7 caps 03/10/23 methylprednisolone 4 mg tablets in See Rx Instructions PO PER PKG DIR 11/20/23 a dose pack (Medrol (Eben)) #21 tabs Allergies Allergy/AdvReac Type Severity Reaction Status Date / Time No Known Allergies Allergy Verified 11/20/23 09:09 [facility] Disclaimer: The information contained in this section may have been updated after the patient was seen, as this information can be updated by other users. Medical History Hypertension Bladder calculus Acute right flank pain Fracture of toe of left foot Back pain Kidney stone Asthma with exacerbation Cervical spondylosis with radiculopathy Allergic rhinitis Need for Tdap vaccination Injury, crush, finger Bronchitis Sinusitis Bradycardia Surgical History History of surgery on wrist History of foot surgery History of ankle surgery History of knee surgery History of neck surgery History of back surgery Social History Smoking Status: Never smoker alcohol intake: current alcohol intake frequency: holidays/special occasions only substance use type: denies use current occupational status: employed Travel in the last 8 weeks: None household members: spouse and children housing: other ROS Obtained: Yes All systems reviewed & no additional complaints except as documented Physical Exam General General appearance: alert Respiratory Respiratory exam: Present normal lung sounds bilaterally; Absent respiratory distress Cardiovascular Cardiovascular exam: Present regular rate and normal rhythm Abdominal Exam Abdominal exam: Present soft; Absent distention or tenderness Neurological Exam Neurological exam: Present alert and oriented X3 Medical Decision Making Manav Inquiry Pt receiving controlled substance: No Vital Signs: 02/20/24 12:43 02/20/24 12:56 02/20/24 13:00 Temperature 98.7 F Temperature Source Oral Pulse Rate 79 76 Pulse Rate [Left Radial] 71 Respiratory Rate 20 Blood Pressure 147/85 H 133/90 Blood Pressure [Right Arm] 133/90 Blood Pressure Mean 96 99 Blood Pressure Mean [Right Arm] 104 02 Sat by Pulse Oximetry 97 93 L 96 Oxygen Delivery Method Room Air 02/20/24 13:30 02/20/24 14:25 02/20/24 14:30 Temperature Temperature Source Pulse Rate 66 60 71 Pulse Rate [Left Radial] Respiratory Rate Blood Pressure 130/84 126/81 119/80 Blood Pressure [Right Arm] Blood Pressure Mean Blood Pressure Mean [Right Arm] 02 Sat by Pulse Oximetry 96 96 98 Oxygen Delivery Method Room Air Room Air Room Air 02/20/24 15:00 Temperature Temperature Source Pulse Rate 59 L Pulse Rate [Left Radial] Respiratory Rate Blood Pressure 115/73 Blood Pressure [Right Arm] Blood Pressure Mean Blood Pressure Mean [Right Arm] 02 Sat by Pulse Oximetry 94 L Oxygen Delivery Method Room Air Lab Data Lab results reviewed: Yes I reviewed the patient's lab results. Lab Results 02/20/24 12:46: WBC 7.7, RBC 4.60, Hgb 14.1, Hct 42.1, MCV 91.6, MCH 30.7, MCHC 33.5, RDW 14.4, Plt Count 272, MPV 8.4, Neut % (Auto) 59.6, Lymph % (Auto) 30.5, [place] % (Auto) 6.6, Eos % (Auto) 2.4, Baso % (Auto) 0.9, Neut # (Auto) 4.6, Lymph # (Auto) 2.4, [place] # (Auto) 0.5, Eos # (Auto) 0.2, Baso # (Auto) 0.1, Sodium 140, Potassium 3.8, Chloride 108 H, Carbon Dioxide 24, Anion Gap 11.8, BUN 18, Creatinine 1.00, Estimated Creat Clear 132, Estimated GFR 78, Est GFR ( Amer) 95, Glucose 90, Calcium 9.7, Total Bilirubin 0.5, AST 34, ALT 43, Alkaline Phosphatase 92, Troponin I < 0.01, Total Protein 7.5, Albumin 4.5, Globulin 3.0, Albumin/Globulin Ratio 1.5, Lipase 73 02/20/24 12:46 02/20/24 12:46 Orders (Tests/Meds): ED MEDICATIONS Generic Name Dose Route Start Last Admin Trade Name Freq PRN Reason Stop Dose Admin Sodium Chloride 8 ml 02/20/24 13:18 Sodium Chloride 0.9% 10ml Vial IV 03/21/24 13:17 NEEDED PRN dilute pepcid Sodium Chloride 10 ml 02/20/24 14:28 Sodium Chloride 0.9% 10ml Flush Syringe IV 03/21/24 14:27 NEEDED PRN Maintain IV Site Discontinued Medications Generic Name Dose Route Start Last Admin Trade Name Freq PRN Reason Stop Dose Admin Belladonna Alkaloids 60 ml 02/20/24 13:18 02/20/24 13:32 Belladonna Alkaloids 60 Ml Ml PO 02/20/24 13:19 60 ml ONCE ONE Administration Famotidine 20 mg 02/20/24 13:18 02/20/24 13:33 Famotidine 20mg/2ml Vial IV 02/20/24 13:19 20 mg ONCE ONE Administration Lactated Ringer's 1,000 mls @ 999 mls/hr 02/20/24 13:30 02/20/24 13:35 Lactated Ringer's 1000 Ml Bag IV 02/20/24 14:30 999 mls/hr .Q1H1M NICHOLAS Administration Iopamidol 75 ml 02/20/24 14:08 02/20/24 14:09 Iopamidol-370 (76%);100ml Bottle IV 02/20/24 14:09 75 ml ONCE ONE Administration Sodium Chloride 10 ml 02/20/24 14:08 02/20/24 14:09 Sodium Chloride 0.9% 10ml Syr (Rad Only) IV 02/20/24 14:09 10 ml ONCE ONE Administration ORDERS Category Date Time Status CT abdomen pelvis w con Stat Cat Scan 02/20/24 13:18 Taken CBC w/Auto Diff [Complete Blood Count Auto Diff] Stat Lab 02/20/24 12:46 Completed CMP [Comprehensive Metabolic Panel] Stat Lab 02/20/24 12:46 Completed Lipase Stat Lab 02/20/24 12:46 Completed Trop I [Troponin I] Stat Lab 02/20/24 12:46 Completed Troponin I Q3H Lab 02/20/24 16:30 Ordered Troponin I Q3H Lab 02/20/24 19:30 Ordered ECG Data Tracing #1: I reviewed this ECG and interpreted as documented below: Ventricular rate of 61 there is left axis deviation and right bundle branch block no acute ischemic changes noted however no significant conduction abnormalities Medical Decision Narrative: 53-year-old male with above history and physical very benign on physical exam differential includes hepatobiliary disease, pancreatitis, ACS, GERD/peptic ulcer disease. I favor peptic ulcer disease in this particular case because the patient has significant postprandial discomfort. I told him his workup will likely be negative will give him medications for this including GI cocktail and Pepcid. I will likely refer him to an outpatient endoscopy. Reassessment 3:24 PM patient had improvement with GI cocktail and Pepcid. Again this is suggestive of peptic ulcer disease or GERD. He has been given a referral to Dr. Ruvalcaba outpatient. CT scan was performed which I first interpreted I do not see any acute abdominal or pelvic pathology. Labs otherwise unremarkable. An addendum will be added if there is any significant change in radiology read. Otherwise patient will take [id number] H2 beatriz and will follow-up outpatient with GI to get a scope. Critical Care Critical Care Time Critical Care Time: No
--- NOTE | 2024-02-20 13:30 | ECG_ITS ---
APPROVED REPORT Exam: Resting ECG HR:61 bpm ECG Measurements Heart Rate 61 AXES OK 141 P 45 QRSd 147 QRS -35 QT 436 T 35 QTc 440 Conclusion SINUS RHYTHM LEFT AXIS DEVIATION [QRS AXIS < -30] RIGHT BUNDLE BRANCH BLOCK [120+ ms QRS DURATION, UPRIGHT V1, 40+ ms S IN I/aVL/V4/V5/V6] ABNORMAL ECG UNCONFIRMED REPORT Electronically signed by : Nikolas Ewing, 02/20/2024 15:26:35
[2024-02-20 13:31] LABS: Chloride 108 mmol/L (98-107); Potassium 3.8 mmoL/L (3.5-5.1); Sodium 140 mmol/L (136-145)
[2024-02-20] MEDS: BELLADONNA ALKALOIDS 60 ML ML PO (13:32)
[2024-02-20] MEDS: FAMOTIDINE 20MG/2ML VIAL 20 MG IV (13:33)
[2024-02-20 13:34] LABS: Alanine Aminotransferase 43 U/L (12-78); Albumin Level 4.5 g/dl (3.5-5.0); Albumin/Globulin Ratio 1.5 (1.1-1.8); Alkaline Phosphatase 92 U/L (38-126); Anion Gap 11.8 mEq/L (5-15); Aspartate Amino Transferase 34 U/L (17-59); Basophils # 0.1 K/mm3 (0-0.2); Basophils % 0.9 % (0.1-2.0); Bilirubin,Total 0.5 mg/dl (0.2-1.3); Blood Urea Nitrogen 18 mg/dl (9-20); Calcium 9.7 mg/dl (8.4-10.2); Carbon Dioxide 24 mmol/L (22.0-30.0); Creatinine Clearance Estimated 132 mL/min (50-200); Eosinophils # 0.2 K/mm3 (0.0-0.4); Eosinophils % 2.4 % (0.1-12.0); Estimated Glomerular Filt Rate 78 ml/min (>60); GFR (African American) 95 ML/MIN (>60); Glucose 90 mg/dl (74-100); Hematocrit 42.1 % (42.0-52.0); Hemoglobin 14.1 g/dL (14.1-18.0); Lipase 73 U/L (23-300); Lymphocytes # 2.4 K/mm3 (0.7-4.5); Lymphocytes % 30.5 % (10-50); Mean Corpuscular HGB Conc 33.5 g/dL (31.8-35.4); Mean Corpuscular Hemoglobin 30.7 pg (27.0-31.2); Mean Corpuscular Volume 91.6 fl (80-94); Mean Platelet Volume 8.4 fl (7.4-10.4); Monocytes # 0.5 K/mm3 (0.1-1.0); Monocytes % 6.6 % (1.7-9.3); Neutrophils # 4.6 K/mm3 (1.8-7.8); Neutrophils % 59.6 % (37.0-80.0); Platelet Count 272 K/mm3 (142-424); Red Cell Distribution Width 14.4 % (11.5-17.5); Total Protein,Serum 7.5 g/dl (6.3-8.2); White Blood Count 7.7 K/mm3 (4.8-10.8)
[2024-02-20] MEDS: LACTATED RINGERS 1000ML 1,000 ML 999 ML IV (13:35)
--- NOTE | 2024-02-20 13:46 | PC.NURSE ---
Rounded on pt. No needs voiced at this time. Call light remains within reach and visitor at BS.
[2024-02-20 13:47] LABS: Troponin I < 0.01 ng/ml (0.00-0.034)
--- NOTE | 2024-02-20 13:57 | PC.NURSE ---
Pt going to ct scan via wheelchair
[2024-02-20] MEDS: SODIUM CHLORIDE 0.9% 10ML SYR (RAD ONLY) 10 ML IV (14:09)
[2024-02-20] MEDS: IOPAMIDOL-370 (76%);100ML BOTTLE 75 ML IV (14:09)
--- NOTE | 2024-02-20 14:25 | PC.NURSE ---
Rounded on pt. Pt continues to rest in bed. No needs voiced. Call light within reach.
--- NOTE | 2024-02-20 15:28 | PC.NURSE ---
DR MOSQUERA AT BEDSIDE TO UPDATE PT AND FAMILY
== END 2024-02-20 15:55 | disposition home or self-care (01) ==
PROVIDERS: Emergency Provider Student in an Organized Health Care Education/Training Program; PCP Internal Medicine Adolescent Medicine
DX: R10.11 Right upper quadrant pain (principal); R10.13 Epigastric pain; I10 Essential (primary) hypertension; I45.10 Unspecified right bundle-branch block
CPT/HCPCS: 74177; 80053; 83690; 84484; 85025; 93005; 96361; 96374; 99284; J7120; Q9967

== ENCOUNTER → 2024-05-09 12:40 | Outpatient (CLI) | payer BC, SELFPAY | LOC: SL 12:43 | PROVIDERS: PCP Nurse Practitioner; Visit Provider Nurse Practitioner | DX: G47.33 Obstructive sleep apnea (adult) (pediatric) (principal); G47.36 Sleep related hypoventilation in conditions classified elsewhere | CPT/HCPCS: G0399 ==

== ENCOUNTER 2024-05-15 14:34 | Outpatient (POV) | payer BC, SELFPAY | END 2024-05-15 23:59 | disposition home or self-care (01) | LOC: SC 14:34 | PROVIDERS: Visit Provider Specialist/Technologist | DX: Z00.00 Encounter for general adult medical examination without abnormal findings (principal) ==

== ENCOUNTER 2024-05-29 11:34 | Outpatient (CLI) | payer BC, SELFPAY | END 2024-05-29 23:59 | disposition home or self-care (01) | LOC: LAB.DROPOF 05-30 11:34 | PROVIDERS: PCP Student in an Organized Health Care Education/Training Program; Visit Provider Student in an Organized Health Care Education/Training Program | DX: J02.9 Acute pharyngitis, unspecified (principal) | CPT/HCPCS: 87070; 87077 ==

== ENCOUNTER 2024-07-22 06:16 | Outpatient (CLI) | payer BC, SELFPAY ==
--- NOTE | 2024-07-22 | CT_ITS ---
FINAL REPORT TECHNIQUE: Axial CT images were performed from the lung bases through the iliac crests. Oral contrast was given. Coronal and sagittal reformats were submitted. This study was performed with techniques to keep radiation doses as low as reasonably achievable (ALARA). Individualized dose reduction techniques using automated exposure control or adjustment of mA and/or kV according to the patient's size were employed. CLINICAL HISTORY: right sided abd pain, hx hernia COMPARISON: 03/10/2023 FINDINGS: The lung bases are clear. The liver parenchyma is homogeneous. The gallbladder is present. The spleen, pancreas, and left adrenal are unremarkable. The right adrenal nodule is unchanged consistent with an adenoma. There is a tiny nonobstructing right renal stone. There is mild diastases of the rectus muscle. Very small fat-containing umbilical hernia is identified. There is no mass or adenopathy. IMPRESSION: Tiny nonobstructing right renal stone. Very small fat-containing umbilical hernia. Reviewed, Interpreted and Dictated by Anna Marie Herrera MD Transcribed by Jimena Rizo Authenticated and [facility]
== END 2024-07-22 23:59 | disposition home or self-care (01) ==
LOC: RAD 06:17
PROVIDERS: PCP Internal Medicine Adolescent Medicine; Visit Provider Internal Medicine Adolescent Medicine
DX: R10.31 Right lower quadrant pain (principal)
CPT/HCPCS: 74150

== ENCOUNTER 2024-08-22 07:21 | Outpatient (CLI) | payer BC, SELFPAY ==
[2024-08-22 07:56] LABS: Basophils % 0.6 % (0.1-2.0); Eosinophils # 0.3 K/mm3 (0.0-0.4); Eosinophils % 4.2 % (0.1-12.0); Hematocrit 44.1 % (42.0-52.0); Hemoglobin 14.7 g/dL (14.1-18.0); Lymphocytes # 2.6 K/mm3 (0.7-4.5); Lymphocytes % 36.6 % (10-50); Mean Corpuscular HGB Conc 33.3 g/dL (31.8-35.4); Monocytes # 0.4 K/mm3 (0.1-1.0); Monocytes % 6.1 % (1.7-9.3); Neutrophils # 3.8 K/mm3 (1.8-7.8); Neutrophils % 52.4 % (37.0-80.0); Platelet Count 260 K/mm3 (142-424); Red Blood Count 5.07 M/mm3 (4.60-6.20); Red Cell Distribution Width 13.8 % (11.5-17.5); White Blood Count 7.2 K/mm3 (4.8-10.8)
[2024-08-22 08:43] LABS: Alanine Aminotransferase 27 U/L (12-78); Albumin Level 4.4 g/dl (3.5-5.0); Albumin/Globulin Ratio 2.1 (1.1-1.8); Alkaline Phosphatase 93 U/L (38-126); Anion Gap 11.2 mEq/L (5-15); Aspartate Amino Transferase 25 U/L (17-59); Bilirubin,Total 0.5 mg/dl (0.2-1.3); Blood Urea Nitrogen 17 mg/dl (9-20); Calcium 9.5 mg/dl (8.4-10.2); Carbon Dioxide 24 mmol/L (22.0-30.0); Chloride 110 mmol/L (98-107); Chol/HDL Ratio 3.7 (1-3.5); Cholesterol 227 mg/dl (140-200); Estimated Glomerular Filt Rate 88 ml/min (>60); GFR (African American) 106 ML/MIN (>60); Globulin 2.1 g/dL (1.3-3.2); Glucose 97 mg/dl (74-100); HDL Cholesterol 61 mg/dl (40-60); Potassium 4.2 mmoL/L (3.5-5.1); Sodium 141 mmol/L (136-145); Total Protein,Serum 6.5 g/dl (6.3-8.2); Triglycerides 84 mg/dl (30-150); VLDL Cholesterol 17 mg/dL (0-40)
[2024-08-22 08:54] LABS: Direct LDL Cholesterol 135.11 mg/dL (100-129)
== END 2024-08-22 23:59 | disposition home or self-care (01) ==
LOC: LAB 07:22
PROVIDERS: PCP Internal Medicine Adolescent Medicine; Visit Provider Physician Assistant
DX: L70.0 Acne vulgaris (principal)
CPT/HCPCS: 36415; 80053; 80061; 85025

== ENCOUNTER 2024-08-28 09:37 | Emergency (ER) | payer BC, SELFPAY ==
[2024-08-28 09:39] VITALS: BP 141/94; PULSE 67; RESP 18; TEMP 36.7; O2SAT 99; BMI 27.5
--- NOTE | 2024-08-28 10:01 | ED_ITS ---
Discharge Plan Disposition Patient Disposition: Home, Self-Care Prescriptions Prescriptions: No Action amlodipine 10 mg tablet 10 mg PO DAILY Patient Comments: TAKE 1 TABLET BY MOUTH ONCE DAILY Zyrtec 10 mg capsule 10 mg PO DAILY PRN (Reason: allergy symptoms) Qty: 30 0RF Referrals Follow up/Referrals: Alejandro Daily MD [Primary Care Provider] - See instructions Activity Restrictions/Add. Instructions Additional Instructions/Restrictions: Please remove your sutures in 7 to 10 days and keep antibiotic ointment on this once a day over the next week as discussed. Return with any significant worsening spreading redness pus, for the wounds or other concerns. Clinical Impressions Clinical Impression: Laceration of left index finger Print Language Print Language: Korean Discharge ED Provider: Aries Ewing General Adult HPI General Chief complaint: Extremity Injury, Upper Stated complaint: [id number]- Laceration to L index finger Time Seen by Provider: 08/28/24 09:58 Mode of Arrival: Ambulatory Source of Information: Patient Limitations: No Limitations Description of Symptoms (Recalled from ER Triage Doc. by RN): left hand index finger. got caught in a ball joint History of Present Illness HPI narrative: 54-year-old presents today with laceration to the volar aspect of his left index finger on distal phalanx. Was working on a truck and just got some of the skin pinched on it. Small laceration from historical standpoint. No neurovascular complaints or crush injury complaints. Tetanus status unknown. Related Data Home Medications ?Medication ?Instructions ?Recorded ?Confirmed amlodipine 10 mg tablet 10 mg PO DAILY 03/31/24 08/05/24 Previous Rx's ?Medication ?Instructions ?Recorded cetirizine 10 mg capsule (Zyrtec) 10 mg PO DAILY PRN allergy 06/22/22 symptoms #30 caps Allergies Allergy/AdvReac Type Severity Reaction Status Date / Time No Known Allergies Allergy Verified 08/05/24 10:57 [facility] Disclaimer: The information contained in this section may have been updated after the patient was seen, as this information can be updated by other users. Medical History SNHL (sensorineural hearing loss) moderate high frequency SNHL right ear; moderate severe high frequency [id number]>[id number] left ear per Audiometric Bilateral chronic serous otitis media Tinnitus History of nephrolithotomy with removal of calculi Enlarged tonsils Dysfunction of right eustachian tube Right chronic serous otitis media Loud snoring Ear problem Hypertension Bladder calculus Acute right flank pain Fracture of toe of left foot Back pain Kidney stone Asthma with exacerbation Cervical spondylosis with radiculopathy Allergic rhinitis Need for Tdap vaccination Injury, crush, finger Bronchitis Sinusitis Bradycardia Surgical History History of hernia repair History of surgery on wrist History of foot surgery History of ankle surgery History of knee surgery History of neck surgery History of back surgery Social History Smoking Status: Never smoker alcohol intake: current alcohol intake frequency: holidays/special occasions only substance use type: denies use current occupational status: employed Travel in the last 8 weeks: None household members: spouse and children housing: other Have you lived/traveled outside [place] in past 30 days?: No Contact w/someone who lives/traveled outside [place] past 30 days?: No Exposure to someone with infectious disease in past 14 days?: No Do you have a fever (greater than 100.4 F or 38 C)?: No Have you tested positive for COVID-19: No Exposed to someone with COVID-19 in past 14 days?: No Do you have a sore throat?: No Do you have a cough?: No Do you have any weakness?: No Do you have any diarrhea?: No Are you experiencing any unusual bleeding?: No Do you have any muscle aches/pain?: No Do you have any abdominal pain?: No Are you experiencing loss of taste or smell?: No Other Medical History Have you received the Flu Vaccine for this season: No Have you received the Pneumonia Vaccine: No ROS Obtained: Yes All systems reviewed & no additional complaints except as documented Physical Exam General General appearance: alert and in no apparent distress Respiratory Respiratory exam: Present normal lung sounds bilaterally Cardiovascular Cardiovascular exam: Present regular rate Extremities Exam Extremities exam: Present other (1-1/2 cm laceration gaping on the volar aspect of the left volar fat pad of the index finger on the left hand neurovascular intact extension flexion normal) Neurological Exam Neurological exam: Present alert and oriented X3 Medical Decision Making Medical Records Screening: Per USPSTF and CDC recommendations, given the prevalence of disease in our region, it is our hospital?s policy to screen for HIV and viral Hepatitis for all patients aged 18 and over and those with ongoing risk factors. Manav Inquiry Pt receiving controlled substance: No Vital Signs: 08/28/24 09:39 08/28/24 10:22 08/28/24 10:30 Temperature 98.1 F Temperature Source Oral Pulse Rate 81 73 Pulse Rate [Left] 67 Respiratory Rate 18 Blood Pressure 142/95 H 127/83 Blood Pressure [Left Arm] 141/94 H Blood Pressure Mean 110 Blood Pressure Mean [Left Arm] 109 02 Sat by Pulse Oximetry 99 98 96 Oxygen Delivery Method Room Air 08/28/24 11:00 08/28/24 11:30 Temperature Temperature Source Pulse Rate 69 66 Pulse Rate [Left] Respiratory Rate Blood Pressure 137/80 145/83 H Blood Pressure [Left Arm] Blood Pressure Mean Blood Pressure Mean [Left Arm] 02 Sat by Pulse Oximetry 97 97 Oxygen Delivery Method Orders (Tests/Meds): ED MEDICATIONS Discontinued Medications Generic Name Dose Route Start Last Admin Trade Name Freq PRN Reason Stop Dose Admin Tetanus/Reduced Diphtheria/Acell Pertussis 0.5 ml 08/28/24 10:01 08/28/24 10:34 Tet/Diphth/Pert-Adult 0.5ml Syringe IM 08/28/24 10:02 Not Given .ONCE ONE Medical Decision Narrative: Patient with above history and physical will extensively clean and irrigate and close primarily no indication for prophylactic antibiotics at this point. Tetanus will be updated patient be discharged with return precautions emphasized to get his sutures removed in 7 to 10 days. After numbing and irrigation defect was more of a superficial tissue avulsion and required undermining to be able to pull tension therefore the sutures were under tension is possible that this will dehisce. He is aware of this but will have the sutures removed in 7 to 10 days. It was extensively irrigated no indication for prophylactic antibiotics we did find out that his last tetanus shot in our system was within the last several years therefore we did not update. Patient was discharged in stable condition. Procedures Laceration Laceration 1: Site: finger Side (If applicable): left Size (cm): 2 Description: linear Depth: simple, single layer Local Anesthetic: lidocaine 1% and with epi Amount of anesthesia used (mL): 4 Pre-repair: wound explored, irrigated extensively, deep structures intact and wound margins revised (under tension, needed undermining ) Skin layer closed with: nylon Size (cm): 4-0 Number of sutures: 3 Technique: simple, interrupted Critical Care Critical Care Time Critical Care Time: No
[2024-08-28 10:22] VITALS: BP 142/95; PULSE 81; O2SAT 98
[2024-08-28 10:30] VITALS: BP 127/83; PULSE 73; O2SAT 96
--- NOTE | 2024-08-28 10:35 | PC.NURSE ---
pt did not recieve tdap due to having received it in the past in 12/14
[2024-08-28 11:00] VITALS: BP 137/80; PULSE 69; O2SAT 97
[2024-08-28 11:30] VITALS: BP 145/83; PULSE 66; O2SAT 97
[2024-08-28 12:15] VITALS: BP 123/90; PULSE 63; RESP 18; TEMP 36.7; O2SAT 99
== END 2024-08-28 12:10 | disposition home or self-care (01) ==
PROVIDERS: Emergency Provider Student in an Organized Health Care Education/Training Program; PCP Internal Medicine Adolescent Medicine
DX: S61.211A Laceration without foreign body of left index finger without damage to nail, initial encounter (principal); M79.645 Pain in left finger(s); X58.XXXA Exposure to other specified factors, initial encounter; Y93.89 Activity, other specified; Y92.9 Unspecified place or not applicable
CPT/HCPCS: 99283

== ENCOUNTER 2024-11-02 14:32 | Emergency (ER) | payer BC, SELFPAY ==
[2024-11-02 14:38] VITALS: BP 154/90; PULSE 81; RESP 20; TEMP 36.4; O2SAT 96; BMI 26.9
--- NOTE | 2024-11-02 14:45 | ECG_ITS ---
APPROVED REPORT Exam: Resting ECG HR:69 bpm ECG Measurements Heart Rate 69 AXES ID 141 P 58 QRSd 138 QRS -61 QT 409 T 50 QTc 428 Conclusion SINUS RHYTHM RIGHT BUNDLE BRANCH BLOCK [120+ ms QRS DURATION, UPRIGHT V1, 40+ ms S IN I/aVL/V4/V5/V6] LEFT ANTERIOR FASCICULAR BLOCK [QRS AXIS <= -45, QR IN I, RS IN II] Electronically signed by : TALITA CALIX, 11/02/2024 23:40:55
--- NOTE | 2024-11-02 15:09 | HMH.EDGENADL ---
Discharge Plan Disposition Patient Disposition: Home, Self-Care Condition: Good Prescriptions Prescriptions: New methocarbamol 750 mg tablet 750 mg PO Q8H Qty: 90 0RF ketorolac 10 mg tablet 10 mg PO Q8H PRN (Reason: pain) 5 Days Qty: 20 0RF oxycodone 5 mg tablet 5 mg PO Q8H PRN (Reason: pain) 3 Days Qty: 10 0RF No Action amlodipine 10 mg tablet 10 mg PO DAILY Patient Comments: TAKE 1 TABLET BY MOUTH ONCE DAILY Zyrtec 10 mg capsule 10 mg PO DAILY PRN (Reason: allergy symptoms) Qty: 30 0RF Referrals Follow up/Referrals: Alejandro Daiyl MD [Primary Care Provider] - See instructions Activity Restrictions/Add. Instructions Additional Instructions/Restrictions: As we discussed, you were given several medications in the emergency department to help with your pain. You were given a steroid shot which will take approximately 2 to 3 hours to start working and will last approximately 72 hours. You were also given a trigger point injection in your trapezius muscle where you were describing the pain was the worst. That pain medication is long-acting and may last up to 48 hours. I also gave you pain medication by mouth and a muscle relaxant and an anti-inflammatory medication. I prescribed you pain medication, muscle relaxant, and anti-inflammatory medication as well. Please do not take ibuprofen or any other NSAID at the same time as the medication called ketorolac. This should be taken instead of these NSAIDs. Please follow-up with your orthopedic doctor. Please return with any new or worsening symptoms. Clinical Impressions Clinical Impression: Strain of trapezius muscle Print Language Print Language: Yi Discharge ED Provider: William Olivas Adult [facility] General Chief complaint: Back Pain/Injury Stated complaint: L. shoulder/neck pain radiating for 5 days Time Seen by Provider: 11/02/24 15:08 Mode of Arrival: Ambulatory Source of Information: Patient Description of Symptoms (Recalled from ER Triage Doc. by RN): Patient presents ambulatory to triage. States he is having left sided chest pain, back pain, and shoulder pain x5 days. States he has a history of severe neck and shoulder issues. States he typically gets injections in his shoulders. States he has attempted BioFreeze, Oxycodone, Gabapentin, muscle relaxers, heating pads, and other measures with no relief. EKG performed in triage, although patient states, I know it's a muscle and not my heart. History of Present Illness HPI narrative: Patient presents for evaluation of L paraspinal cervical pain and trapezious pain, gradual in onset, constant, stable in course, nonradiating, with no associated trauma, numbness, tingling, or chest pain. No swelling, fevers, chills, or identified aggrivating or alleviating factors outside of movement. Please note that above description of symptoms, in this electronic medical record under categorization of recalled from ER triage doctor by RN are reflective of an initial nursing assessment, however, is not reflective of my full history and physical exam that was personally taken and clarified. Consequentially, this preceding description of symptoms, which may include the patient's categorized chief complaint in the EMR, do not reflect my personal clinical impression, and the ultimate description of history of present illness and patient stated complaints should be deferred to this section of the note. Unless stated otherwise or congruent with this section of the note, additional signs, symptoms, or incongruence should be interpreted as inaccurate with my clinical impression. Related Data Home Medications ?Medication ?Instructions ?Recorded ?Confirmed amlodipine 10 mg tablet 10 mg PO DAILY 03/31/24 08/05/24 Previous Rx's ?Medication ?Instructions ?Recorded cetirizine 10 mg capsule (Zyrtec) 10 mg PO DAILY PRN allergy 06/22/22 symptoms #30 caps ketorolac 10 mg tablet 10 mg PO Q8H PRN pain 5 days #20 11/02/24 tabs methocarbamol 750 mg tablet 750 mg PO Q8H #90 tabs 11/02/24 oxycodone 5 mg tablet 5 mg PO Q8H PRN pain 3 days #10 11/02/24 tabs Allergies Allergy/AdvReac Type Severity Reaction Status Date / Time No Known Allergies Allergy Verified 11/04/24 10:43 [facility] Disclaimer: The information contained in this section may have been updated after the patient was seen, as this information can be updated by other users. Medical History SNHL (sensorineural hearing loss) moderate high frequency SNHL right ear; moderate severe high frequency SNHL>2KHZ left ear per Audiometric Bilateral chronic serous otitis media Tinnitus History of nephrolithotomy with removal of calculi Enlarged tonsils Dysfunction of right eustachian tube Right chronic serous otitis media Loud snoring Ear problem Hypertension Bladder calculus Acute right flank pain Fracture of toe of left foot Back pain Kidney stone Asthma with exacerbation Cervical spondylosis with radiculopathy Allergic rhinitis Need for Tdap vaccination Injury, crush, finger Bronchitis Sinusitis Bradycardia Surgical History History of hernia repair History of surgery on wrist History of foot surgery History of ankle surgery History of knee surgery History of neck surgery History of back surgery Social History Smoking Status: Unknown if ever smoked alcohol intake: current alcohol intake frequency: holidays/special occasions only substance use type: denies use current occupational status: employed Travel in the last 8 weeks: None household members: spouse and children housing: other Have you lived/traveled outside US in past 30 days?: No Contact w/someone who lives/traveled outside US past 30 days?: No Exposure to someone with infectious disease in past 14 days?: No Do you have a fever (greater than 100.4 F or 38 C)?: No Have you tested positive for COVID-19: No Exposed to someone with COVID-19 in past 14 days?: No Do you have a sore throat?: No Do you have a cough?: No Do you have shortness of breath?: No Do you have a headache?: No Do you have any weakness?: No Are you experiencing any nausea/vomitting?: No Do you have any diarrhea?: No Are you experiencing any unusual bleeding?: No Do you have any muscle aches/pain?: No Do you have any abdominal pain?: No Are you experiencing loss of taste or smell?: No Other Medical History Have you received the Flu Vaccine for this season: No Have you received the Pneumonia Vaccine: No ROS Obtained: Yes other As per HPI Physical Exam General General appearance: alert and in no apparent distress Head Head exam: atraumatic and normocephalic Eye Eye exam: Present normal appearance Neck Neck exam: Present normal inspection Chest Chest inspection: Present normal inspection and symmetric chest wall rise Respiratory Respiratory exam: Present normal lung sounds bilaterally; Absent respiratory distress Cardiovascular Cardiovascular exam: Present regular rate and normal rhythm Abdominal Exam Abdominal exam: Present soft Neurological Exam Neurological exam: Present alert and oriented X3 Psychiatric Psychiatric exam: Present normal affect and normal mood Skin Skin exam: Present warm and dry Other Other exam information: TTP over L trapezious area, no evidence of trauma, distally neurovacularly intact. Medical Decision Making Medical Records Medical records reviewed: Yes I reviewed the patient's medical records. Screening: Per USPSTF and CDC recommendations, given the prevalence of disease in our region, it is our hospital?s policy to screen for HIV and viral Hepatitis for all patients aged 18 and over and those with ongoing risk factors. Manav Inquiry Pt receiving controlled substance: Yes Manav was queried for this patient: Yes Risks and benefits of using a controlled substance: were discussed with pt by me Vital Signs: 11/02/24 14:38 11/02/24 16:27 Temperature 97.6 F 97.6 F Temperature Source Temporal Artery Scan Oral Pulse Rate 81 Pulse Rate [Radial] 81 Respiratory Rate 20 20 Blood Pressure 154/90 H Blood Pressure [R Arm] 154/90 H Blood Pressure Mean [R Arm] 111 Blood Pressure Source Automatic Cuff Blood Pressure Source [R Arm] Automatic Cuff Blood Pressure Position Sitting 02 Sat by Pulse Oximetry 96 Oxygen Delivery Method Room Air Room Air Orders (Tests/Meds): ED MEDICATIONS Discontinued Medications Generic Name Dose Route Start Last Admin Trade Name Brandee PRN Reason Stop Dose Admin Bupivacaine HCl 15 mg 11/02/24 15:24 11/02/24 15:58 Bupivacaine 0.5% 30ml Vial IJ 11/02/24 15:25 15 mg ONCE ONE Administration Cyclobenzaprine HCl 10 mg 11/02/24 15:24 11/02/24 15:39 Cyclobenzaprine 10mg Tablet PO 11/02/24 15:25 10 mg ONCE ONE Administration Dexamethasone Sodium Phosphate 10 mg 11/02/24 15:24 11/02/24 15:39 Dexamethasone 4mg/Ml 1ml Vial IM 11/02/24 15:25 10 mg ONCE ONE Administration Ketorolac Tromethamine 15 mg 11/02/24 15:24 11/02/24 15:39 Ketorolac 30mg/Ml Vial IM 11/02/24 15:25 15 mg ONCE ONE Administration Oxycodone HCl 5 mg 11/02/24 15:24 11/02/24 15:39 Oxycodone 5mg Immediate Release Tablet PO 11/02/24 15:25 5 mg ONCE ONE Administration Medical Decision Narrative: Patient with history and exam per above presenting for evaluation of L trapezious pain Diagnoses considered include muscle spasm, no evidence of vascular injury, nerve injury, fracture, no symptoms to suggest reffered cardiac eitology ED workup and treatment included: ED MEDICATIONS Discontinued Medications Generic Name Dose Route Start Last Admin Trade Name Brandee PRN Reason Stop Dose Admin Bupivacaine HCl 15 mg 11/02/24 15:24 11/02/24 15:58 Bupivacaine 0.5% 30ml Vial IJ 11/02/24 15:25 15 mg ONCE ONE Administration Cyclobenzaprine HCl 10 mg 11/02/24 15:24 11/02/24 15:39 Cyclobenzaprine 10mg Tablet PO 11/02/24 15:25 10 mg ONCE ONE Administration Dexamethasone Sodium Phosphate 10 mg 11/02/24 15:24 11/02/24 15:39 Dexamethasone 4mg/Ml 1ml Vial IM 11/02/24 15:25 10 mg ONCE ONE Administration Ketorolac Tromethamine 15 mg 11/02/24 15:24 11/02/24 15:39 Ketorolac 30mg/Ml Vial IM 11/02/24 15:25 15 mg ONCE ONE Administration Oxycodone HCl 5 mg 11/02/24 15:24 11/02/24 15:39 Oxycodone 5mg Immediate Release Tablet PO 11/02/24 15:25 5 mg ONCE ONE Administration Patient reported mild improvement upon repeat evaluation. He will follow up with ortho this week. I discussed my clinical impression with patient and answered all questions. At this time, the evidence for any other entities in the differential is insufficient to warrant any further testing or ED observation. This was explained to the patient. The patient was advised that persistent or worsening symptoms require further evaluation. Critical Care Critical Care Time Critical Care Time: No
--- NOTE | 2024-11-02 15:19 | PC.NURSE ---
dr paul at bedside
[2024-11-02] MEDS: OXYCODONE 5MG IMMEDIATE RELEASE TABLET 5 MG PO (15:39)
[2024-11-02] MEDS: CYCLOBENZAPRINE 10MG TABLET 10 MG PO (15:39)
[2024-11-02] MEDS: KETOROLAC 30MG/ML VIAL 15 MG IM (15:39)
[2024-11-02] MEDS: DEXAMETHASONE 4MG/ML 1ML VIAL 10 MG IM (15:39)
[2024-11-02] MEDS: BUPIVACAINE 0.5% 30ML VIAL 15 MG IJ (15:58)
[2024-11-02 16:27] VITALS: BP 154/90; PULSE 81; RESP 20; TEMP 36.4; O2SAT 96
== END 2024-11-02 16:29 | disposition home or self-care (01) ==
PROVIDERS: Emergency Provider Emergency Medicine; PCP Internal Medicine Adolescent Medicine
DX: S46.819A Strain of other muscles, fascia and tendons at shoulder and upper arm level, unspecified arm, initial encounter (principal); R07.9 Chest pain, unspecified; M54.9 Dorsalgia, unspecified; M25.512 Pain in left shoulder
CPT/HCPCS: 93005; 96372; 96374; 99283; C9144; J1100; J1885

== ENCOUNTER 2025-04-28 07:05 | Outpatient (CLI) | payer BC, SELFPAY ==
--- OUTSIDE RECORDS SUMMARY | 2025-04-28 07:08 | XMS_ITS | Encounter Summary ---
Author Organization [facility] Address [address] [place] [address] Care Team Providers Care College Advisor Name Role Phone Alejandro Daily MD Primary Care Provider [phone] Encounter Details Date Type Department Care Team ([facility] st Contact Info) Description 07/14/2021 Orders Only External Location [address] [place] [address] Provider, External Social History Tobacco Use Types Packs/Day Years Used Date Smoking Tobacco: Never Alcohol Use Standard Drinks/Week Comments No 0 (1 standard drink = 0.6 oz pur e alcohol) Sex and Gender Information Value Date Recorded Sex Assigned at Not on file Legal Sex Male 8:38 PM EDT Gender Identity Not on file Sexual Orientation Not on file documented as of this encounter Plan of Treatment Not on file documented as of this encounter Procedures Procedure Name Priority Date/Time Associated Diagnosis Comments MR NEURO OUTSIDE IMAGES 07/14/2021 7:34 AM EST documented in this encounter Results * MR NEURO OUTSIDE IMAGES (07/14/2021 7:34 AM EST) Anatomical Region Laterality Modality Magnetic Resonan ce 07/14/2021 7:34 AM EST us External Provider IMG MRI PROCEDURES Final Resul t documented in this encounter Visit Diagnoses Not on filedocumented in this encounter Care Teams College Advisor Relationship Specialty Start Date End Date Alejandro Daily MD [address] [place] [id number] PCP - General 01/07/21 documented as of this encounter
--- OUTSIDE RECORDS SUMMARY | 2025-04-28 07:08 | XMS_ITS | Clinical Summary ---
Author Organization [facility] Address [address] [place] [address] Care Team Providers Care Computer Hardware Technician Name Role Phone Nonstaff, Referring MD Primary Care Provider [phone] Elsy Stern MD Unavailable Unavailable Allergies No known active allergies Medications MINOCYCLINE HCL (MINOCYCLINE PO) Take 100 mg by mouth 2 times daily. Active Potassium Citrate (UROCIT-K 15) 15 mEq PO TbSR Take by mouth 2 times daily. Active cyclobenzaprine (FLEXERIL) 10 mg PO tablet Take 1 Tab by mouth 3 times daily as needed for muscle spasm. 50 Tab 0 3 Active Diclofenac Sodium (VOLTAREN) 1 % EX Gel Apply 2 g topically 2 times daily. 100 g 0 3 Active Active Problems Problem Noted Date Diagnosed Date Postoperative state 08/14/2012 Post-op pain 07/31/2012 Pain in joint, ankle and foot 07/26/2012 Deformity of ankle and foot, acquired 07/26/2012 Overview (11/17/2016): Replaced inactive diagnosis term via diagnosis import Equinus deformity of foot, acquired 07/26/2012 Family History Medical History Relation Name Comments Heart Problems Father Hypertension Father Osteoarthritis Mother Anesthesia Complications Neg Hx Relation Name Status Comments Father Alive Mother Alive Social History Tobacco Use Types Packs/Day Years Used Date Smoking Tobacco: Never Smokeless Tobacco: Current Snuff Alcohol Use Standard Drinks/Week Comments Yes 0 (1 standard drink = 0.6 oz pur e alcohol) occ Sex and Gender Information Value Date Recorded Sex Assigned at Not on file Legal Sex Male 7:21 PM EST Gender Identity Not on file Sexual Orientation Not on file Last Filed Vital Signs Vital Sign Reading Time Taken Comments Blood Pressure 144/71 07/27/2012 11:00 AM EST Pulse 81 07/27/2012 11:00 AM EST Temperature 36.7 C (98.1 F) 09/25/2012 9:04 AM EST Respiratory Rate 14 07/27/2012 11:00 AM EST Oxygen Saturation 97% 07/27/2012 11:00 AM EST Inhaled Oxygen Concentration - - Weight 102.1 kg (225 lb) 09/25/2012 9:04 AM EST Height 188 cm (6' 2 ) 09/25/2012 9:04 AM EST Body Mass Index 28.89 09/25/2012 9:04 AM EST Plan of Treatment Health Maintenance Due Date Last Done Comments Cologuard 1970 Colonoscopy 1970 Colorectal Cancer Screening 1970 FIT 1970 Lipid Screening 1988 Tetanus Vaccination (Every 10 Years) 1988 Pneumococcal Vaccine: 50+ Years (1 of 1 - PCV) 020 Zoster-RZV(Shingrix) (1 of 2) 2020 COVID-19 Vaccine (1 - season) 2024 Depression Screening 08/27/2024 Influenza Vaccination (#1) 2025 [address] [place] [address] [facility] [address] [place] [address] [place]THE[place] Advance Directives For more information, please contact: [phone] * Full Code (Latest Code Status on File) Date Activated Date Inactivated Comments 07/26/2012 8:51 PM 07/27/2012 4:04 PM Care Teams Computer Hardware Technician Relationship Specialty Start Date End Date Scott Miller MD [address] [facility] PCP - General 07/15/12 Elsy Stern MD Orthopedic Surgery 09/03/22
--- OUTSIDE RECORDS SUMMARY | 2025-04-28 07:08 | XMS_ITS | Encounter Summary ---
Author Organization [facility] Address [address] [place] [address] Care Team Providers Care Respiratory Therapy Aide Name Role Phone Alejandro Daily MD Primary Care Provider [phone] Encounter Details Date Type Department Care Team ([facility] st Contact Info) Description 07/07/2021 Orders Only External Location [address] [place] [address] Provider, External Social History Tobacco Use Types [...] Procedure Name Priority Date/Time Associated Diagnosis Comments XR OUTSIDE IMAGES 07/07/2021 10:55 AM EST documented in this encounter Results * XR OUTSIDE IMAGES (07/07/2021 10:55 AM EST) Anatomical Region Laterality Modality Radiographic Nuzhat ging 07/07/2021 10:5 5 AM EST us External Provider IMG XR PROCEDURES Final Result documented in this encounter Visit Diagnoses Not on filedocumented in this encounter Care Teams Respiratory Therapy Aide Relationship Specialty Start Date End Date Alejandro Daily MD [address] [place] [address] PCP - General 01/07/21 documented as of this encounter
--- OUTSIDE RECORDS SUMMARY | 2025-04-28 07:08 | XMS_ITS | Encounter Summary ---
Author Organization [facility] Address [address] [place] [address] Care Team Providers Care General Internal Medicine Doctor Name Role Phone Alejandro Daily MD Primary Care Provider [phone] Encounter Details Date Type Department Care Team ([facility] st Contact Info) Description 07/22/2024 Orders Only External Location [address] [place] [address] Provider, External Social History Tobacco Use Types [...] Procedure Name Priority Date/Time Associated Diagnosis Comments CT ABDOMEN OUTSIDE IMAGES 07/22/2024 6:33 AM EST documented in this encounter Results * CT ABDOMEN OUTSIDE IMAGES (07/22/2024 6:33 AM EST) Anatomical Region Laterality Modality Computed Tomogra phy 07/22/2024 6:33 AM EST us External Provider IMG CT PROCEDURES Final Result documented in this encounter Visit Diagnoses Not on filedocumented in this encounter Care Teams General Internal Medicine Doctor Relationship Specialty Start Date End Date Alejandro Daily MD [address] [place] [id number] PCP - General 01/07/21 documented as of this encounter
--- OUTSIDE RECORDS SUMMARY | 2025-04-28 07:08 | XMS_ITS | Clinical Summary ---
Author Organization [facility] Address [address] [place] [address] Care Team Providers Care Neurological Surgery Teacher Name Role Phone Alejandro Daily MD Primary Care Provider [phone] Allergies No known active allergies Medications * This document contains information received from the source organization and may not represent a complete record from that organization. amLODIPine (Norvasc) 10 MG tablet Take 1 tablet by mouth daily. 5 Active cyanocobalamin (Vitamin B-12) 1000 MCG/ML injection 0 Active potassium citrate CR (Urocit-K-15) 15 mEq ER tablet Take by mouth in the morning and before bedtime. Active levocetirizine (Xyzal) 5 MG tablet 4 Active Zenatane 40 MG capsule 5 Active ergocalciferol (Vitamin D-2) 1.25 MG (17420 UT) capsule 0 Active methylPREDNISol one (Medrol Dospak) 4 MG tablets Follow schedule on package instructions 1 each 5 Active methocarbamol (Robaxin) 500 MG tablet Take 1 tablet by mouth 3 (three) times a day as needed for muscle spasms. 60 tablet 5 Active Family History Medical History Relation Name Comments Conversions - Other Father prostate problems Relation Name Status Comments Father Social History Tobacco Use Types Packs/Day Years Used Date Smoking Tobacco: Never Smokeless Tobacco: Current Chew Tobacco Cessation:Ready to Q uit: Not Asked; Counseling Given: Not Answered Alcohol Use Standard Drinks/Week Comments No 0 (1 standard drink = 0.6 oz pur e alcohol) Sex and Gender Information Value Date Recorded Sex Assigned at Not on file Legal Sex Male 8:38 PM EDT Gender Identity Not on file Sexual Orientation Not on file Last Filed Vital Signs Vital Sign Reading Time Taken Comments Blood Pressure 135/89 11/26/2024 8:56 AM EDT Pulse 66 11/26/2024 8:56 AM EDT Temperature 36.2 C (97.1 F) 02/19/2020 2:12 PM EDT Respiratory Rate - - Oxygen Saturation 99% 11/26/2024 8:56 AM EDT Inhaled Oxygen Concentration - - Weight 99 kg (218 lb 4.1 oz) 11/26/2024 8:56 AM EDT Height 182.9 cm (6') 11/26/2024 8:56 AM EDT Body Mass Index 29.6 11/26/2024 8:56 AM EDT Plan of Treatment Health Maintenance Due Date Last Done Comments [facility]-Depression Screening 1970 [facility]-HIV Screening 1970 [facility]-Hepatitis C Screening 1970 [facility]-/Child/Adol SDOH Screenings 1970 [id number] Vaccine (#1) 1975 [facility]- SDOH Screenings 1988 [facility]-Adult SDOH Screenings 1988 [facility]-Hepatitis B Vaccines (1 of 3 - 19+ 3-dose series) 1989 CT Colonography 2015 Colonoscopy 2015 FIT-DNA 2015 FIT 2015 FOBT 2015 Sigmoidoscopy 2015 [facility]-Colorectal Cancer Screening 2015 [facility]-Pneumococcal Vaccine: 50 + Years (1 of 1 - PCV) 2020 [facility]-Zoster Vaccines (1 of 2) 2020 [facility]-Influenza Vaccine (#1) 2025 08/29/2019 [facility]-DTaP,Tdap,and Td Vaccine s (3 - Td or Tdap) 12/14/2029 12/15/2019, 03/24/2013 [facility]-Obesity Intervention Completed 11/26/2024 HPV Vaccines Aged Out No longer eligi ble based on patient's age to complete this topic [facility]-HIB Vaccines Aged Out No longer e ligible based on patient's age to complete this topic [facility]-Hepatitis A Vaccines Aged Out No longer eligible based on patient's age to complete this topic [facility]-IPV Vaccines Aged Out No longer e ligible based on patient's age to complete this topic [facility]-Rotavirus Vaccines Aged Out No lo nger eligible based on patient's age to complete this topic Insurance ANTH Care Teams Neurological Surgery Teacher Relationship Specialty Start Date End Date Alejandro Daily MD [address] [place] [address] PCP - General 01/07/21
--- OUTSIDE RECORDS SUMMARY | 2025-04-28 07:08 | XMS_ITS | Encounter Summary ---
Author Organization [facility] Address [address] [place] [address] Care Team Providers Care Outfitter [place]in Name Role Phone Alejandro Daily MD Primary Care Provider [phone] Encounter Details Date Type Department Care Team ([facility] st Contact Info) Description 02/20/2024 Orders Only External Location [address] [place] [address] Provider, External Social History Tobacco Use Types [...] Name Priority Date/Time Associated Diagnosis Comments CT MSK OUTSIDE IMAGES 02/20/2024 2:04 PM EDT documented in this encounter Results * CT MSK OUTSIDE IMAGES (02/20/2024 2:04 PM EDT) Anatomical Region Laterality Modality Computed Tomogra phy 02/20/2024 2:04 PM EDT us External Provider IMG CT PROCEDURES Final Result documented in this encounter Visit Diagnoses Not on filedocumented in this encounter Care Teams Outfitter [place] Relationship Specialty Start Date End Date Alejandro Daily MD [address] [place] [address] PCP - General 01/07/21 documented as of this encounter
--- NOTE | 2025-04-28 07:10 | XR_ITS ---
FINAL REPORT CLINICAL HISTORY: .RIGHT HIP PAIN COMPARISON: None FINDINGS: RIGHT HIP Two views of the right hip with an AP view of the pelvis demonstrate no acute fracture or dislocation. There are mild hypertrophic changes at the acetabular margin. The joint spaces otherwise preserved. Ossific protuberance is seen arising from the lateral aspect of the right iliac wing which may be related to prior bone graft site. There is posterior fusion hardware bridging the lower lumbar spine. No soft tissue abnormality is seen. IMPRESSION: No acute bony abnormality. Chronic/degenerative changes as above. Reviewed, Interpreted and Dictated by Edmundo Lyman MD Transcribed by Ximena Jessica Authenticated and [facility]
--- NOTE | 2025-04-28 07:10 | XR_ITS ---
FINAL REPORT TECHNIQUE: Chest PA & Lateral CLINICAL HISTORY: Shortness of breath, PAIN COMPARISON: None FINDINGS: 2 views of the chest were performed. The heart size is normal. The mediastinum is within normal limits. There is no acute cardiopulmonary process. There are no pleural effusions. There is no pneumothorax. There is cervical fusion hardware bridging the lower cervical spine. IMPRESSION: No acute cardiopulmonary process. Reviewed, Interpreted and Dictated by Edmundo Lyman MD Transcribed by Ximena Jessica Authenticated and . [facility]
== END 2025-04-28 23:59 | disposition home or self-care (01) ==
LOC: RAD 07:06
PROVIDERS: PCP Internal Medicine Adolescent Medicine; Visit Provider Internal Medicine Adolescent Medicine
DX: M16.11 Unilateral primary osteoarthritis, right hip (principal); R06.02 Shortness of breath
CPT/HCPCS: 71046; 73502

== ENCOUNTER 2025-05-14 13:41 | Outpatient (CLI) | payer BC, SELFPAY ==
--- NOTE | 2025-05-14 13:44 | MR_ITS ---
FINAL REPORT CLINICAL HISTORY: RT HIP PAIN. no recent injury. symptoms x1year COMPARISON: none FINDINGS: MR RIGHT HIP TECHNIQUE: Multiplanar MR without gadolinium enhancement. FINDINGS: ARTICULAR CARTILAGE: No focal defects. LABRUM: Tiny tear of the lateral labrum well-seen on coronal images. Anterior and posterior labrum intact. MARROW SIGNAL: Normal. JOINT FLUID: Physiologic quantity. ADJACENT SOFT TISSUES: Unremarkable. IMPRESSION: Tiny lateral labral tear. Reviewed, Interpreted and Dictated by Kamlesh Duval MD Transcribed by Ximena Jessica Authenticated and [facility]
--- OUTSIDE RECORDS SUMMARY | 2025-05-14 13:44 | XMS_ITS | Encounter Summary ---
Author Organization [facility] Address [address] [place] [address] Care Team Providers Care Lead Die Molder Name Role Phone Alejandro Daily MD Primary Care Provider [phone] Encounter Details Date Type Department Care Team ([facility] st Contact Info) Description 07/22/2024 Orders Only External Location [address] [place] [address] Provider, External Social History Tobacco Use Types [...] on filedocumented in this encounter Care Teams Lead Die Molder Relationship Specialty Start Date End Date Alejandro Daily MD [address] [place] [id number] PCP - General 01/07/21 documented as of this encounter
--- OUTSIDE RECORDS SUMMARY | 2025-05-14 13:44 | XMS_ITS | Encounter Summary ---
Author Organization [facility] Address [address] [place] [address] Care Team Providers Care Cellophane Press Operator Name Role Phone Alejandro Daily MD Primary Care Provider [phone] Encounter Details Date Type Department Care Team ([facility] st Contact Info) Description 02/20/2024 Orders Only External Location [address] [place] [address] Provider, External Social History Tobacco Use Types [...] on filedocumented in this encounter Care Teams Cellophane Press Operator Relationship Specialty Start Date End Date Alejandro Daily MD [address] [place] [address] PCP - General 01/07/21 documented as of this encounter
--- OUTSIDE RECORDS SUMMARY | 2025-05-14 13:44 | XMS_ITS | Clinical Summary ---
Author Organization [facility] Address [address] [place] [address] Care Team Providers Care Abrasive Mixer Name Role Phone Nonstaff, Referring MD Primary Care Provider [phone] Elsy Stern MD Unavailable Unavailable Allergies No [...] PCV) 020 Zoster-RZV(Shingrix) (1 of 2) 2020 Depression Screening 08/27/2024 COVID-19 Vaccine ( - 2023- season) 2025 Influenza Vaccination (#1) 2025 Insurance [address] [place] [address] [facility] [address] [place] [address] [place] Advance Directives For more information, please contact: [phone] * Full Code (Latest Code Status on File) Date Activated Date Inactivated Comments 07/26/2012 8:51 PM 07/27/2012 4:04 PM Care Teams Abrasive Mixer Relationship Specialty Start Date End Date Scott Miller MD [address] [facility] [place] PCP - General 07/15/12 Elsy Stern MD Orthopedic Surgery 09/03/22
--- OUTSIDE RECORDS SUMMARY | 2025-05-14 13:44 | XMS_ITS | Clinical Summary ---
Author Organization [facility] Address [address] [place] [address] Care Team Providers Care Histopathologist Name Role Phone Alejandro Daily MD Primary Care Provider + [phone] Allergies No known active allergies Medications * [...] 5 Active ergocalciferol (Vitamin D-2) 1.25 MG (58294 UT) capsule 0 Active methylPREDNISol one (Medrol [...] C Screening 1970 [facility]-/Child/Adol SDOH Screenings 1970 [id number] Vaccine (#1) 1975 [facility]- SDOH Screenings 1988 [...] complete this topic Insurance ANTH Care Teams Histopathologist Relationship Specialty Start Date End Date Alejandro Daily MD [address] [place] [id number] PCP - General 01/07/21
--- OUTSIDE RECORDS SUMMARY | 2025-05-14 13:44 | XMS_ITS | Encounter Summary ---
Author Organization [facility] Address [address] [place] [address] Care Team Providers Care [employer] Wiring Technician Name Role Phone Alejandro Daily MD Primary Care Provider [phone] Encounter Details Date Type Department Care Team ([facility] st Contact Info) Description 07/07/2021 Orders Only External Location [address] [place] [address] Provider, External Social History Tobacco Use Types [...] on filedocumented in this encounter Care Teams [employer] Wiring Technician Relationship Specialty Start Date End Date Alejandro Daily MD [address] [place] [address] PCP - General 01/07/21 documented as of this encounter
--- OUTSIDE RECORDS SUMMARY | 2025-05-14 13:44 | XMS_ITS | Encounter Summary ---
Author Organization [facility] Address [address] [place] [address] Care Team Providers Care Flag Football Coach Name Role Phone Alejandro Daily MD Primary Care Provider [phone] Encounter Details Date Type Department Care Team ([facility] st Contact Info) Description 07/14/2021 Orders Only External Location [address] [place] [address] Provider, External Social History Tobacco Use Types [...] on filedocumented in this encounter Care Teams Flag Football Coach Relationship Specialty Start Date End Date Alejandro Daily MD [address] [place] [address] PCP - General 01/07/21 documented as of this encounter
--- NOTE | 2025-05-14 13:47 | XR_ITS ---
FINAL REPORT CLINICAL HISTORY: rule out metallic foreign body for mri FINDINGS: Two views were obtained. No acute fracture or malalignment. The paranasal sinuses are symmetric. No foreign body is identified. IMPRESSION: No foreign body identified. Reviewed, Interpreted and Dictated by Kamlesh Duval MD Transcribed by Jimena Rizo Authenticated and [facility]
[2025-05-14] MEDS: ALBUTEROL 0.083% 2.5 MG/3 ML NEB IH (15:00)
== END 2025-05-14 23:59 | disposition home or self-care (01) ==
LOC: RAD 13:42
PROVIDERS: PCP Internal Medicine Adolescent Medicine; Visit Provider Internal Medicine Adolescent Medicine
DX: S73.191A Other sprain of right hip, initial encounter (principal); R06.02 Shortness of breath; Z04.89 Encounter for examination and observation for other specified reasons
CPT/HCPCS: 70200; 73721; 94060; 94618; 94726; 94729